=== PATIENT | female | born 1945 | race Caucasian/White ===

== ENCOUNTER → 2023-04-16 14:26 | Outpatient (BNVA) | payer OTHER, SELFPAY | PROVIDERS: PCP Internal Medicine; Visit Provider Psychiatry & Neurology Neurology | DX: G20 Parkinson's disease (principal); G25.81 Restless legs syndrome ==

== ENCOUNTER 2023-07-10 14:07 | Outpatient (AMB) | payer OTHER, SELFPAY ==
[2023-07-10 14:08] VITALS: BP 108/74; PULSE 80; O2SAT 97; BMI 25.0
--- NOTE | 2023-07-10 14:08 | A.OFFVIS_ITS ---
Intake Vital Signs 07/10/23 14:08 Height 5 ft 3 in Weight 141 lb BMI 25.0 BP 108/74 Blood Pressure Location Lt brachial Position Sitting Pulse 80 Pulse Source Pulse Oximeter Pulse Oximetry (%) 97 Oxygen Delivery Method Room Air Intake Visit Reasons: 2m [id number] Intake Note: Pt presents in office as a 2m f/u. 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 Restar ting requip XL 2mg qhs helps her restless legs but has infrequent side effects. she is on sinemet 25/100 2-1.5-2-1.5she denies hallucinations no falls she had vertigo - stopped ropinirole. she is taking Vit B 1- maximum 3 gm a day and feels it is helping her. she is able to chop vegetables, and able to use her hands better.No tremors, Bowel movements are stable. Restless legs syndrome is worse and affects her sleep. Her gait and balance are slower No constipation Memory is stable and speech is ok. SHe has mild anxiety she is independent in most ADLs. She does not drive anymore.Her partner helps with laundry.Back is usually triggered when she does yard work. Her right foot is stiffer and slower PFSH Medical History Thyroid disease Parkinson's disease Restless legs syndrome (RLS) Arthritis Family History Father Liver disease Mother Kidney disease Heart disease Family/Other Pat's disease DM (diabetes mellitus) Social History Alcohol intake: current Alcohol intake frequency: a few times a month Alcohol type: wine Patient Tobacco Use Status: Never used Tobacco Physical Exam Vital Signs: Last Vital Signs Pulse 80 07/10/23 14:08 BP 108/74 07/10/23 14:08 Pulse Ox 97 07/10/23 14:08 Oxygen Delivery Method Room Air 07/10/23 14:08 BMI result Body Mass Index 25.0 Const General: cooperative and healthy appearing Nutritional Appearance: average body habitus Orientation/consciousness: patient oriented x3 Neuro Other: no tremors Mild voice change Keeps her right hand stiff Mild stoop - keeps her right UE stiff No arm swing right UE normal stride , stooped General: patient oriented x3, tone normal, moves all extremities and no focal motor deficits Motor exam (neuro): 5/5 motor strength present throughout Assessment & Plan Assessment & Plan (1) Parkinson's disease: Code(s): G20 - Parkinson's disease (2) Restless legs syndrome (RLS): Code(s): G25.81 - Restless legs syndrome Plan Sinemet 25/100 2- 1.5-2-1.5 Increase exercises Requip XL 2mg qhs Increase fluids Coding Level of Care Code Est Pt Level 4 (10641) Diagnoses Parkinson's disease G20 Restless legs syndrome (RLS) G25.81
== END 2023-07-10 14:31 | disposition home or self-care (01) ==
PROVIDERS: PCP Internal Medicine; Visit Provider Psychiatry & Neurology Neurology
DX: G20 Parkinson's disease (principal); G25.81 Restless legs syndrome
CPT/HCPCS: 99214

== ENCOUNTER → 2023-07-10 14:07 | Outpatient (BNVA) | payer OTHER, SELFPAY | PROVIDERS: PCP Internal Medicine; Visit Provider Psychiatry & Neurology Neurology | DX: G20 Parkinson's disease (principal); G25.81 Restless legs syndrome ==

== ENCOUNTER 2024-03-10 12:18 | Outpatient (AMB) | payer OTHER, SELFPAY ==
--- NOTE | 2024-03-10 12:22 | MHC.OFFVIS ---
Vital Signs 03/10/24 12:23 Height 5 ft 3 in Weight 134 lb BMI 23.7 BP 128/78 Blood Pressure Location Rt brachial Position Sitting Respiration 17 Pulse 78 Pulse Source Pulse Oximeter Pulse Oximetry (%) 99 Oxygen Delivery Method Room Air Intake Visit Reasons: Follow up - Confirmed Intake Note: Pt presents for a 7 month follow up for Parkinson's. Pt reports she is doing well. 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 Requip XL 2mg qhs helps she is on sinemet 25/100 2-1.5-2-1.5 she denies hallucinations no falls she walks 1-2 mils every day, rides exericse bike , does balance exercises. she is able to chop vegetables, and able to use her hands better.No tremors, Bowel movements are stable. Her gait and balance are slower No constipation Memory is stable and speech is ok. SHe has mild anxiety she is independent in most ADLs. She does not drive anymore.Her partner helps with laundry.Back is usually triggered when she does yard work. [facility] Medical History (Updated 03/10/24 @ 12:44 by Mone Landry MD) Parkinson's disease with dyskinesia Thyroid disease Parkinson's disease Restless legs syndrome (RLS) Arthritis Family History Father Liver disease Mother Kidney disease Heart disease Family/Other Pat's disease DM (diabetes mellitus) Social History Alcohol intake: current Alcohol intake frequency: a few times a month Alcohol type: wine Patient Tobacco Use Status: Never used Tobacco Physical Exam Vital Signs: Last Vital Signs Pulse 78 03/10/24 12:23 Resp 17 03/10/24 12:23 BP 128/78 03/10/24 12:23 Pulse Ox 99 03/10/24 12:23 Oxygen Delivery Method Room Air 03/10/24 12:23 BMI result Body Mass Index 23.7 Assessment & Plan Assessment & Plan (1) Parkinson's disease with dyskinesia: Code(s): G20.B1 - Parkinson's disease with dyskinesia, without mention of fluctuations Category: Medical (2) Restless legs syndrome (RLS): Code(s): G25.81 - Restless legs syndrome Category: Medical Plan Sinemet 2- 1.5-2-1.5 - change times to [id number] Continue exercises Requip XL 2mg qhs Increase fluids Coding Level of Care Code Est Pt Level 4 (40570) Complex EM visit Add On G2211 Diagnoses Parkinson's disease with dyskinesia G20.B1 Restless legs syndrome (RLS) G25.81
[2024-03-10 12:23] VITALS: BP 128/78; PULSE 78; RESP 17; O2SAT 99; BMI 23.7
== END 2024-03-10 13:03 | disposition home or self-care (01) ==
PROVIDERS: PCP Internal Medicine; Visit Provider Psychiatry & Neurology Neurology
DX: G20.B1 Parkinson's disease with dyskinesia, without mention of fluctuations (principal); G25.81 Restless legs syndrome
CPT/HCPCS: 99214; G2211

== ENCOUNTER → 2024-03-10 12:18 | Outpatient (BNVA) | payer OTHER, SELFPAY | PROVIDERS: PCP Internal Medicine; Visit Provider Psychiatry & Neurology Neurology ==

== ENCOUNTER 2024-08-09 13:14 | Outpatient (AMB) | payer OTHER, SELFPAY ==
--- NOTE | 2024-08-09 13:14 | A.OFFVIS_ITS ---
Vital Signs 08/09/24 13:17 Height 5 ft 3 in Weight 135 lb BMI 23.9 Intake Visit Reasons: 6 mo f/u Register In Chancery Required: No Accompanied by: Self / Same As Patient Allergies ciprofloxacin [From Cipro] Allergy (Mild, Verified 08/09/24 13:14) Difficulty Swallowing Medication List - Last Reconciled 08/09/24 by Mone Landry MD ascorbic acid (vitamin C) ER 500 mg PO DAILY carbidopa-levodopa 25-100 mg (Sinemet) 1 1/2 tabs 5 times a day carbidopa-levodopa 25-100 mg ER 1 tab PO .am cholecalciferol (vitamin D3) 25 mcg PO DAILY coenzyme Q10 100 mg PO DAILY folic acid 0.4 mg PO DAILY gabapentin 100 mg PO BEDTIME levothyroxine (Euthyrox) 88 mcg PO DAILY magnesium 200 mg PO DAILY mecobalamin (vitamin B12) 1,000 mcg PO DAILY ropinirole ER 2 mg PO BEDTIME 90 days HPI Comments Details: 78y/o female calls for follow up. She has worsened in the past month . she has more OFF periods and her restless legs are worse. Requip XL 2mg qhs but wakes up with night sweats. she reports numbness in her feet. she is on sinemet 25/100 2-1.5-2-1.5 she denies hallucinations no falls she walks 1-2 miles every day, rides exericse bike , does balance exercises. she is able to chop vegetables, and able to use her hands better.No tremors, Bowel movements are stable. Her gait and balance are slower No constipation Memory is stable and speech is ok. she is independent in most ADLs. She does not drive anymore.Her partner helps with laundry.Back is usually triggered when she does yard work. [facility] Medical History Parkinson's disease with dyskinesia Thyroid disease Parkinson's disease Restless legs syndrome (RLS) Arthritis Family History Father Liver disease Mother Kidney disease Heart disease Family/Other Pat's disease DM (diabetes mellitus) Social History Alcohol intake: current Alcohol intake frequency: a few times a month Alcohol type: wine Patient Tobacco Use Status: Never used Tobacco Physical Exam Vital Signs: BMI result Body Mass Index 23.9 Const General: cooperative Orientation/consciousness: patient oriented x3 Neuro General: patient oriented x3 Telehealth Telehealth Telehealth Platform: Telephone Location of provider rendering services: practice address Location of patient: address on file Patient Identification confirmed using: Name, : Yes Telehealth method: voice only Patient verbally consented to treatment: Yes Patient verbally consented to billing insurance company: Yes Patient informed of any privacy concerns related to visit: Yes Minutes spent on Phone/Video with Pt.: 22 Assessment & Plan Assessment & Plan (1) Parkinson's disease with dyskinesia: Code(s): G20.B1 - Parkinson's disease with dyskinesia, without mention of fluctuations Category: Medical Qualifiers: Fluctuating manifestations: with fluctuating manifestations Qualified Code(s): G20.B2 - Parkinson's disease with dyskinesia, with fluctuations (2) Restless legs syndrome (RLS): Code(s): G25.81 - Restless legs syndrome Category: Medical Plan Sinemet 25/100 1.5 tabs 5 times a day 2- Continue exercises Requip XL 2mg qhs add gabapentin 100mg qhs Increase fluids Medications: New gabapentin 100 mg PO BEDTIME 30 caps 6RF gabapentin 100 mg PO BEDTIME 30 caps 6RF Changed From carbidopa-levodopa 25-100 mg (Sinemet) 2 tab qam 1 1/2 tab q noon 2 tab q eboni 1 1 /2 tabs qhs orally 4 times a day; 630 tabs 6RF To carbidopa-levodopa 25-100 mg (Sinemet) 1 1/2 tabs 5 times a day 630 tabs 6RF Coding Level of Care Code Tele Est Pt Level 4 (01612) Complex EM visit Add On G2211 Diagnoses Parkinson's disease with dyskinesia and fluctuating manifestations G20.B2 Fluctuating manifestations: with fluctuating manifestations Restless legs syndrome (RLS) G25.81
[2024-08-09 13:17] VITALS: BMI 23.9
== END 2024-08-09 14:16 | disposition home or self-care (01) ==
PROVIDERS: PCP Internal Medicine; Visit Provider Psychiatry & Neurology Neurology
DX: G20.B2 Parkinson's disease with dyskinesia, with fluctuations (principal); G25.81 Restless legs syndrome
CPT/HCPCS: 99214; G2211

== ENCOUNTER → 2024-08-09 13:14 | Outpatient (BNVA) | payer OTHER, SELFPAY | PROVIDERS: PCP Internal Medicine; Visit Provider Psychiatry & Neurology Neurology ==

== ENCOUNTER 2024-09-21 14:01 | Outpatient (AMB) | payer OTHER, SELFPAY ==
--- NOTE | 2024-09-21 14:03 | MHC.OFFVIS ---
Vital Signs 09/21/24 14:04 Height 5 ft 3 in Weight 142 lb BMI 25.2 Intake Visit Reasons: f/u in person per pt requested Intake Note: patient presents for follow up Allergies ciprofloxacin [From Cipro] Allergy (Mild, Verified 09/21/24 14:05) Difficulty Swallowing Medication List - Last Reconciled 09/21/24 by Mone Landry MD ascorbic acid (vitamin C) ER 500 mg PO DAILY carbidopa-levodopa 25-100 mg (Sinemet) 1 1/2 tabs 5 times a day carbidopa-levodopa 25-100 mg ER 1 tab PO .am cholecalciferol (vitamin D3) 25 mcg PO DAILY coenzyme Q10 100 mg PO DAILY folic acid 0.4 mg PO DAILY gabapentin 100 mg PO BEDTIME levothyroxine (Euthyrox) 88 mcg PO DAILY magnesium 200 mg PO DAILY mecobalamin (vitamin B12) 1,000 mcg PO DAILY ropinirole ER 2 mg PO BEDTIME 90 days HPI Comments Details: 78y/o female comes for follow up. Now she reports a different symptom - like tingling worse at night . she says this is different from her restless legs symptoms ( which she describes as someone tickling her while holding her down) She was started on gabapentin 100mg qhs 6 weeks ago. Requip XL 2mg qhs helps for 2 hrs but when she wakes up in 2-3 hrs she feels tightness in her legs and sweats she reports numbness in her feet. she is on sinemet 25/100 1.5 5 times a day she denies hallucinations no falls she walks 1-2 miles every day, rides exercise bike , does balance exercises. she is able to chop vegetables, and able to use her hands better.No tremors, Bowel movements are stable. Her gait and balance are slower No constipation Memory is stable and speech is ok. she is independent in most ADLs. She does not drive anymore.Her partner helps with laundry.Back is usually triggered when she does yard work. [facility] Medical History Parkinson's disease with dyskinesia Thyroid disease Parkinson's disease Restless legs syndrome (RLS) Arthritis Family History Father Liver disease Mother Kidney disease Heart disease Family/Other Pat's disease DM (diabetes mellitus) Social History Alcohol intake: current Alcohol intake frequency: a few times a month Alcohol type: wine Patient Tobacco Use Status: Never used Tobacco Physical Exam Vital Signs: BMI result Body Mass Index 25.2 Const General: cooperative and healthy appearing Nutritional Appearance: average body habitus Orientation/consciousness: patient oriented x3 Neuro Other: no tremors Mild voice change dyskinesia - mild to moderate Keeps her right hand stiff Mild stoop - keeps her right UE stiff No arm swing right UE normal stride , stooped General: patient oriented x3, tone normal, moves all extremities and no focal motor deficits Motor exam (neuro): 5/5 motor strength present throughout Coordination: [id number] test normal Assessment & Plan Assessment & Plan (1) Parkinson's disease with dyskinesia: Code(s): G20.B1 - Parkinson's disease with dyskinesia, without mention of fluctuations Category: Medical Qualifiers: Fluctuating manifestations: with fluctuating manifestations Qualified Code(s): G20.B2 - Parkinson's disease with dyskinesia, with fluctuations (2) Restless legs syndrome (RLS): Code(s): G25.81 - Restless legs syndrome Category: Medical Plan D/c Sinemet 25/100 1.5 tabs 5 times a day I will trial her on Rytary 36/145 2 caps tid stop requip XR 2mg qhs Trial requip 1mg qhs - Continue exercises Increase gabapentin 100- 200mg qhs Increase fluids Medications: New carbidopa-levodopa 36.25-145 mg ER (Rytary) divide evenly over waking hours 2 caps PO TID 180 caps 0RF ropinirole administer 1-3 hours before bedtime 1 mg PO BEDTIME 30 tabs 0RF Changed From gabapentin 100 mg PO BEDTIME 30 caps 6RF To gabapentin 200 mg (2 x 100 mg) PO BEDTIME 60 caps 6RF Discontinued ropinirole ER Discontinued Reason: Doctor's Order 2 mg PO BEDTIME 90 days 90 tabs 6RF Coding Level of Care Code Est Pt Level 4 (60984) Complex EM visit Add On G2211 Diagnoses Parkinson's disease with dyskinesia and fluctuating manifestations G20.B2 Fluctuating manifestations: with fluctuating manifestations Restless legs syndrome (RLS) G25.81
[2024-09-21 14:04] VITALS: BMI 25.2
== END 2024-09-21 14:33 | disposition home or self-care (01) ==
PROVIDERS: PCP Internal Medicine; Visit Provider Psychiatry & Neurology Neurology
DX: G20.B2 Parkinson's disease with dyskinesia, with fluctuations (principal); G25.81 Restless legs syndrome
CPT/HCPCS: 99214; G2211

== ENCOUNTER 2024-10-19 13:22 | Outpatient (AMB) | payer OTHER, SELFPAY ==
--- NOTE | 2024-10-19 13:20 | A.OFFVIS_ITS ---
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 Accompanied by: Self / Same As Patient Allergies ciprofloxacin [From Cipro] Allergy (Mild, Verified 10/19/24 13:20) Difficulty Swallowing Medication List - Last Reconciled 10/19/24 by Mone Landry MD ascorbic acid (vitamin C) ER 500 mg PO DAILY carbidopa-levodopa 25-100 mg 2 tabs PO QID cholecalciferol (vitamin D3) 25 mcg PO DAILY coenzyme Q10 100 mg PO DAILY entacapone 200 mg PO QID folic acid 0.4 mg PO DAILY gabapentin 300 mg (3 x 100 mg) PO BEDTIME levothyroxine (Euthyrox) 88 mcg PO DAILY magnesium 200 mg PO DAILY mecobalamin (vitamin B12) 1,000 mcg PO DAILY ropinirole 1 mg PO BEDTIME HPI Comments Details: 78y/o female calls for follow up. she did not do well with Rytary , she was switched to sinemet 25/100 with entacapone 200mg 1 tab qid and sinemet 25/100 qid 2 days ago and she is doing well. The first day she felt nauseous and icnrease in her restless leg symptoms but she did better yesterday. she walks 1-2 miles every day, rides exercise bike , does balance exercises. she is able to chop vegetables, and able to use her hands better.No tremors, Bowel movements are stable. Her gait and balance are slower No constipation Memory is stable and speech is ok. she is independent in most ADLs. She does not drive anymore.Her partner helps with laundry.Back is usually triggered when she does yard work. [facility] Medical History Parkinson's disease with dyskinesia Thyroid disease Parkinson's disease Restless legs syndrome (RLS) Arthritis Family History Father Liver disease Mother Kidney disease Heart disease Family/Other Pat's disease DM (diabetes mellitus) Social History Alcohol intake: current Alcohol intake frequency: a few times a month Alcohol type: wine Patient Tobacco Use Status: Never used Tobacco Physical Exam Vital Signs: BMI result Body Mass Index 24.8 Const General: cooperative Orientation/consciousness: patient oriented x3 Neuro General: patient oriented x3 Telehealth Telehealth Telehealth Platform: Telephone Location of provider rendering services: practice address Location of patient: address on file Patient Identification confirmed using: Name, : Yes Telehealth method: voice only Patient verbally consented to treatment: Yes Patient verbally consented to billing insurance company: Yes Patient informed of any privacy concerns related to visit: Yes Minutes spent on Phone/Video with Pt.: 22 Assessment & Plan Assessment & Plan (1) Parkinson's disease with dyskinesia: Code(s): G20.B1 - Parkinson's disease with dyskinesia, without mention of fluctuations Category: Medical Qualifiers: Fluctuating manifestations: with fluctuating manifestations Qualified Code(s): G20.B2 - Parkinson's disease with dyskinesia, with fluctuations (2) Restless legs syndrome (RLS): Code(s): G25.81 - Restless legs syndrome Category: Medical Plan continue Sinemet 25/100 2 tabs qid entacapone 200mg qid requip 1mg qhs - Continue exercises Increase gabapentin 100- 300mg qhs Increase fluids Medications: New carbidopa-levodopa 25-100 mg 2 tabs PO QID 240 tabs 6RF entacapone administer at the same time as levodopa/carbidopa dose 200 mg PO QID 120 tabs 6RF Changed From gabapentin 200 mg (2 x 100 mg) PO BEDTIME 60 caps 6RF To gabapentin 300 mg (3 x 100 mg) PO BEDTIME 90 caps 6RF Discontinued [id number] 25-100-200 mg Discontinued Reason: Doctor's Order 1 tab PO QID 120 tabs 3RF carbidopa-levodopa 36.25-145 mg ER (Rytary) divide evenly over waking hours Discontinued Reason: Patient no longer taking 2 caps PO TID 180 caps 0RF Coding Level of Care Code Tele Est Pt Level 4 (30165) Complex EM visit Add On G2211 Diagnoses Parkinson's disease with dyskinesia and fluctuating manifestations G20.B2 Fluctuating manifestations: with fluctuating manifestations Restless legs syndrome (RLS) G25.81
[2024-10-19 13:21] VITALS: BMI 24.8
== END 2024-10-19 14:14 | disposition home or self-care (01) ==
PROVIDERS: PCP Internal Medicine; Visit Provider Psychiatry & Neurology Neurology
DX: G20.B2 Parkinson's disease with dyskinesia, with fluctuations (principal); G25.81 Restless legs syndrome
CPT/HCPCS: 99442; G2211

== ENCOUNTER → 2024-10-19 13:22 | Outpatient (BNVA) | payer OTHER, SELFPAY | PROVIDERS: PCP Internal Medicine; Visit Provider Psychiatry & Neurology Neurology | DX: G20.B2 Parkinson's disease with dyskinesia, with fluctuations (principal); G25.81 Restless legs syndrome ==

== ENCOUNTER 2024-12-08 11:24 | Outpatient (AMB) | payer OTHER, SELFPAY ==
--- NOTE | 2024-12-08 11:24 | A.OFFVIS_ITS ---
Intake Visit Reasons: Follow Up Allergies ciprofloxacin [From Cipro] Allergy (Mild, Verified 12/08/24 11:24) Difficulty Swallowing Medication List - Last Reconciled 12/08/24 by Mone Landry MD ascorbic acid (vitamin C) ER 500 mg PO DAILY carbidopa-levodopa 25-100 mg 2 tabs PO QID carbidopa-levodopa 25-100 mg ER 1 tab PO BEDTIME cholecalciferol (vitamin D3) 25 mcg PO DAILY coenzyme Q10 100 mg PO DAILY entacapone 200 mg PO QID folic acid 0.4 mg PO DAILY gabapentin 300 mg (3 x 100 mg) PO BEDTIME levothyroxine (Euthyrox) 88 mcg PO DAILY magnesium 200 mg PO DAILY mecobalamin (vitamin B12) 1,000 mcg PO DAILY ropinirole 1 mg PO BEDTIME HPI Comments Details: 79y/o female calls for urgent follow up. she reports early wearing OFF - 1 hr before her next dose she feels weak , dizzy , feels her foot is stuck. she also has dyskinesias . she also reports increase in nighttime symptoms. she is able to chop vegetables, and able to use her hands better.No tremors, Bowel movements are stable. Her gait and balance are slower No constipation Memory is stable and speech is ok. she is independent in most ADLs. She does not drive anymore.Her partner helps with laundry.Back is usually triggered when she does yard work. [facility] Medical History Parkinson's disease with dyskinesia Thyroid disease Parkinson's disease Restless legs syndrome (RLS) Arthritis Family History Father Liver disease Mother Kidney disease Heart disease Family/Other Pat's disease DM (diabetes mellitus) Social History Alcohol intake: current Alcohol intake frequency: a few times a month Alcohol type: wine Patient Tobacco Use Status: Never used Tobacco Physical Exam Const General: cooperative Orientation/consciousness: oriented to time Neuro General: oriented to time Telehealth Telehealth Telehealth Platform: Telephone Location of provider rendering services: practice address Location of patient: address on file Patient Identification confirmed using: Name, : Yes Telehealth method: voice only Patient verbally consented to treatment: Yes Patient verbally consented to billing insurance company: Yes Patient informed of any privacy concerns related to visit: Yes Minutes spent on Phone/Video with Pt.: 21 Assessment & Plan Assessment & Plan (1) Parkinson's disease with dyskinesia: Code(s): G20.B1 - Parkinson's disease with dyskinesia, without mention of fluctuations Category: Medical Qualifiers: Fluctuating manifestations: with fluctuating manifestations Qualified Code(s): G20.B2 - Parkinson's disease with dyskinesia, with fluctuations (2) Restless legs syndrome (RLS): Code(s): G25.81 - Restless legs syndrome Category: Medical Plan continue Sinemet 25/100 2 tabs qid- change timings to 6am-10am,2pm,6pm entacapone 200mg qid ADD sinemet 25/100 ER 1 tab at 9 PM Requip 1mg qhs - Continue exercises Continue gabapentin 100- 300mg qhs Increase fluids Orders: Orders PT Evaluation and Treatment Today G20.B2 - Parkinson's disease with dyskinesia, with fluctuations Medications: New carbidopa-levodopa 25-100 mg ER 1 tab PO BEDTIME 30 tabs 3RF Refilled ropinirole administer 1-3 hours before bedtime 1 mg PO BEDTIME 30 tabs 0RF Coding Level of Care Code Tele Est Pt Level 4 (15757) Complex EM visit Add On G2211 Diagnoses Parkinson's disease with dyskinesia and fluctuating manifestations G20.B2 Fluctuating manifestations: with fluctuating manifestations Restless legs syndrome (RLS) G25.81
--- OUTSIDE RECORDS SUMMARY | 2024-12-08 13:10 | XMS_ITS | Encounter Summary ---
Author Organization [facility] Address [address] [place] [address] Care Team Providers Care Dual Hose Cementer Name Role Phone Bobby Diaz Primary Care Provider [phone] Reason for Visit * Reason Comments Knee Injury Right knee swelling and pain since Friday, unable to ambulate Encounter Details Date Type Department Care Team (Late st Contact Info) Description 11/28/2024 12:27 PM EST - 11/28/2024 5:22 PM EST Emergency [facility] Emergency [address] [place] [id number] Razia Pak, DO [address] [place] [address] Yaniv Oglesby MD [address] [place] [address] Pain of right lower extremity (Primary Dx); Knee effusion, right Discharge Disposition: Home or Self Care Social History Tobacco Use Types Packs/Day Years Used Date Smoking Tobacco: Never Assessed Sex and Gender Information Value Date Recorded Sex Assigned at Not on file Gender Identity Not on file Sexual Orientation Not on file Job Start Date Occupation Industry Not on file Not on file Not on file documented as of this encounter Last Filed Vital Signs Vital Sign Reading Time Taken Comments Blood Pressure 126/68 11/28/2024 3:28 PM EST Pulse 71 11/28/2024 3:28 PM EST Temperature 36.4 ??C (97.5 ??F) 11/28/2024 3:28 PM ES T Respiratory Rate 16 11/28/2024 3:28 PM EST Oxygen Saturation 99% 11/28/2024 3:28 PM EST Inhaled Oxygen Concentration - - Weight 63.5 kg (140 lb) 11/28/2024 9:40 AM EST Height 157.5 cm (5' 2 ) 11/28/2024 9:40 AM EST Body Mass Index 25.61 11/28/2024 9:40 AM EST documented in this encounter Discharge Instructions * Discharge Instructions* STEPHANIE Sifuentes - 11/28/2024 5:10 PM EST Please take the medication as prescribed, elevate the leg, cool compresses. Avoid excessive activity especially over the next few days. Call primary care to follow-up. You can also call orthopedic asin the paperwork to follow-up if persists/worsens. If you develop any fevers, redness/significant warmth or skin changes to the knee return to the ER for reevaluation documented in this encounter Medications at Time of Discharge Medication Sig Dispensed Refills Start Date End Date ibuprofen (ADVIL,MOTRIN) 600 mg tablet Take 1 tablet (600 mg total) by mouth every 6 (six) hours if needed for mild pain (for pain) for up to 10 days. 30 tablet 11/28/2024 12/08/2024 predniSONE (DELTASONE) 20 mg tablet Take 1 tablet (20 mg total) by mouth 1 (one) time each day for 10 days. 10 each 11/28/2024 12/08/2024 documented as of this encounter Ordered Prescriptions Prescription Sig Dispensed Refills Start Date End Da te ibuprofen (ADVIL,MOTRIN) 600 mg tablet Take 1 tablet (600 mg total) by mouth every 6 (six) hours if needed for mild pain (for pain) for up to 10 days. 30 tablet 11/28/2024 12/08/2024 predniSONE (DELTASONE) 20 mg tablet Take 1 tablet (20 mg total) by mouth 1 (one) time each day for 10 days. 10 each 11/28/2024 12/08/2024 documented in this encounter Discharge Disposition Disposition Code Departure Means Destination Comment s Home or Self Care documented in this encounter Progress Notes * Kerri Blue RN - 11/28/2024 9:44 AM EST Since Friday noticed right knee swelling, unable to ambulate; saw PCP he did nothing Noticeable swelling in triage. * STEPHANIE Sifuentes - 11/28/2024 9:24 AM ESTAssociated Order(s): Arthrocentesis Emergency Medicine Note Patient Name: Anatoliy Sharpe Initial Evaluation: 11/28/2024 : 1945 Patient's PCP: STEPHANEI Thompson Emergency Physician: STEPHANIE Sifuentes History of Present Illness Chief Complaint: Chief Complaint Patient presents with Knee Injury Right knee swelling and pain since Friday, unable to ambulate HPI: 79-year-old female with history of Parkinson's disease presents with right leg pain. She says it has been about 3 to 4 days. It first started as a mild soreness but seems to be bothering her more now. At times she will feel little soreness into the right calf but it is mostly on the right kneeand a little behind the right knee. She says she has varicosities and thought maybe it was that it first. -She denies history of other arthralgias or arthritis. -Denies chest pain, shortness of breath, trauma ROS: I have performed a ROS with the pertinent positives and negatives documented in the history ofpresent illness. Previous History No past medical history on file. No past surgical history on file. No family history on file. is allergic to ciprofloxacin. No current facility-administered medications on file prior to encounter. No current outpatient medications on file prior to encounter. Physical Exam ED Triage Vitals [11/28/24 0940] Temp Heart Rate Resp BP 36.5 ??C (97.7 ??F) 79 16 95/53 SpO2 Temp Source Heart Rate Source Patient Position 99 % Oral Radial -- BP Location FiO2 (%) Left arm -- General: awake, calm, cooperative, No apparent distress Skin: warm, dry, No diaphoresis. No rash or significant discoloration to the right leg when compared to left Eyes: PERRLA, EOMI Neck: soft/supple, full range of motion, no nuchal rigidity Respiratory: clear to auscultation Cardiovascular: regular rate and rhythm, no peripheral edema. 2+ pedal pulses equal and symmetricalbilateral. Close veins to bilateral lower extremities Musculoskeletal: no calf tenderness, no pedal edema, appropriate range of motion in upper and lowerextremities. Swelling about the right knee when compared to left. Neurological: alert and oriented X3, no focal deficit, DTR intact, cranial nerves III through XII intact, strength 5/5 bilateral hands, 5/5 strength upper and lower extremities Psychiatric: stable mood and affect Results Labs Reviewed CRYSTAL IDENTIFICATION, BODY FLUID - Normal Result Value Crystals, Fluid No diagnostic crystals seen CULTURE BODY FLUID WITH GRAM STAIN Fluid Culture No growth at 2 days Gram Stain Result Few Polymorphonuclear leukocytes Gram Stain Result No epithelial cells seen Gram Stain Result No organisms seen Narrative: Testing performed on Unspun fluid, Quantity not sufficient to spin. CELL COUNT WITH REFLEX DIFFERENTIAL, BODY FLUID Body Fluid Total Nucleated Cells 1,880 Body Fluid RBC 256,000 Body Fluid Color Red Body Fluid Clarity Bloody Body Fluid Source Knee, Right Narrative: No reference ranges have been established for body fluids. Clinical correlation recommended. DIFFERENTIAL BODY FLUID Fluid Neutrophils % 33 Fluid Lymphocytes % 7 Fluid Monocytes/Macrophages 60 Fluid Eosinophils % 0 Fluid Basophils % 0 Fluid Other Cells % 0 Narrative: No reference ranges have been established for body fluids. Clinical correlation recommended. Abnormal Labs Reviewed - No abnormal labs to display XR Knee 4+ Views Right Final Result Impression: 1. Soft tissue swelling. 2. Small joint effusion. 3. Minimal, nonspecific arthritic changes. Independent Spaceeamon BROWN ([id number]) -------- FINAL REPORT -------- Dictated By: Anay Hurtado Dictated Date: 11/28/2024 13:24 ET Assigned Physician: Anay Hurtado Reviewed and Electronically Signed By: Anay Hurtado Signed Date: 11/28/2024 13:25 ET Workstation ID: [id number] Transcribed By: Self Edit Transcribed Date: 11/28/2024 13:24 ET Vascular US Duplex Lower Extremity Venous Right Final Result Impression: No evidence of deep vein thrombosis in the right femoral-popliteal venous segment. Knee joint effusion. Independent Spaceeamon BROWN ([id number]) -------- FINAL REPORT -------- Dictated By: Anay Hurtado Dictated Date: 11/28/2024 13:23 ET Assigned Physician: Anay Hurtado Reviewed and Electronically Signed By: Anay Hurtado Signed Date: 11/28/2024 13:24 ET Workstation ID: [id number] Transcribed By: Self Edit Transcribed Date: 11/28/2024 13:23 ET I have discussed the incidental/abnormal imaging and/or lab abnormalities with the patient and haveinstructed them the need for further evaluation and workup with their primary care doctor. The laboratory results, imaging results and other diagnostic exam results were reviewed in the EMR. EKG Interpretation Critical Care Time None ? Medical Decision Making MDM as described in ED course below Medications lidocaine (XYLOCAINE) 2 % injection 5 mL (5 mL infiltration Given 11/28/24 1434) ED Course as of 11/30/245 Sun Nov 28, 2024 1244 Seen and evaluated. History and physical exam performed. Vitals reviewed. Patient is afebrile,well-appearing and nontoxic. She has no specific history of inflammatory arthritis. As she does have some pain and swelling down into the calf we will proceed with ultrasound to rule out DVT as well as x-ray for initial evaluation. Will review with my attending. [AT] 1657 Test results with patient and family at bedside. Analysis does not look infectious. Will coverwith steroids, anti-inflammatories. No history of kidney disease/anticoagulants. Will provide referral information in case persist. Return Precautions discussed. [AT] ED Course User Index [AT] STEPHANIE Sifuentes Clinical Impressions as of 11/30/242214 Pain of right lower extremity Knee effusion, right Procedures Arthrocentesis Date/Time: 11/28/2024 3:13 PM Performed by: STEPHANIE Sifuentes Authorized by: Razia Pak DO Consent: Consent obtained: Written Consent given by: Patient Risks, benefits, and alternatives were discussed: yes Risks discussed: Bleeding, infection, pain, poor cosmetic result, nerve damage and incomplete drainage Alternatives discussed: Alternative treatment, observation and referral Ogema protocol: Patient identity confirmed: Verbally with patient and arm band Location: Location: Knee Knee: R knee Anesthesia: Anesthesia method: Local infiltration Local anesthetic: Lidocaine 2% w/o epi Procedure details: Needle gauge: 22 G Ultrasound guidance: yes Approach: Superior Aspirate amount: 5cc Aspirate characteristics: Blood-tinged and clear Steroid injected: no Specimen collected: yes Post-procedure details: Dressing: Adhesive bandage Procedure completion: Tolerated well, no immediate complications Differential Diagnosis DVT Inflammatory arthritis Osteoarthritis Septic arthritis Other joint effusion Diagnosis 1. Pain of right lower extremity Vascular US Duplex Lower Extremity Venous Right Vascular US Duplex Lower Extremity Venous Right 2. Knee effusion, right Disposition Discharge Condition: Stable ED Prescriptions Medication Sig Dispense Start Date End Date Auth. Provider predniSONE (DELTASONE) 20 mg tablet Take 1 tablet (20 mg total) by mouth 1 (one) time each day for 10 days. 10 each 11/28/2024 12/08/2024 STEPHANIE Sifuentes ibuprofen (ADVIL,MOTRIN) 600 mg tablet Take 1 tablet (600 mg total) by mouth every 6 (six) hours ifneeded for mild pain (for pain) for up to 10 days. 30 tablet 11/28/2024 12/08/2024 STEPHANIE Sifuentes Physician Attestation STEPHANIE Sifuentes 11/28/24 1249 STEPHANIE Sifuentes 11/28/24 1514 STEPHANIE Sifuentes 11/30/24 2215 documented in this encounter Plan of Treatment Not on file documented as of this encounter Procedures Procedure Name Priority Date/Time Associated Diagnosis Comments HC ARTHROCENTESIS/FNA Routine 11/28/2024 3:13 PM EST NV ARTHROCENTESIS/ASPIRA TION/INJECTION MAJOR JOINT/BURSA W U/S GUIDANCE Routine 11/28/2024 3:13 PM EST CELL COUNT WITH REFLEX DIFFERENTIAL, BODY FLUID STAT 11/28/2024 3:10 PM EST CULTURE BODY FLUID WITH GRAM STAIN STAT 11/28/2024 3:10 PM EST DIFFERENTIAL BODY FLUID STAT 11/28/2024 3:10 PM EST CRYSTAL IDENTIFICATION, BODY FLUID STAT 11/28/2024 3:10 PM EST XR KNEE 4+ VIEWS RIGHT STAT 11/28/2024 1:21 PM EST VAS US DUPLEX LOWER EXT VENOUS RIGHT STAT 11/28/2024 1:19 PM EST Pain of right lower extremity documented in this encounter Results * NV ARTHROCENTESIS/ASPIRATION/INJECTION MAJOR JOINT/BURSA W U/S GUIDANCE, HC ARTHROCENTESIS/FNA (11/28/2024 3:13 PM EST) Narrative Razia Pak DO - 11/28/2024 3:13 PM EST STEPHANIE Sifuentes ? 11/30/2024 10:15 PM Arthrocentesis Date/Time: 11/28/2024 3:13 PM Performed by: STEPHANIE Sifuentes Authorized by: Razia Pak DO ?? Consent: ??Consent obtained: ??Written ??Consent given by: ??Patient ??Risks, benefits, and alternatives were discussed: yes ?Risks discussed: ??Bleeding, infection, pain, poor cosmetic result, nerve damage and incomplete drainage ??Alternatives discussed: ??Alternative treatment, observation and referral Ogema protocol: ??Patient identity confirmed: ??Verbally with patient and arm band Location: ??Location: ??Knee ??Knee: ??R knee Anesthesia: ??Anesthesia method: ??Local infiltration ??Local anesthetic: ??Lidocaine 2% w/o epi Procedure details: ??Needle gauge: ??22 G ??Ultrasound guidance: yes ?Approach: ??Superior ??Aspirate amount: ??5cc ??Aspirate characteristics: ??Blood-tinged and clear ??Steroid injected: no ?Specimen collected: yes ?? Post-procedure details: ??Dressing: ??Adhesive bandage ??Procedure completion: ??Tolerated well, no immediate complications Razia Pak DO IN CLINIC/BEDSIDE ORDERABLES * Differential body fluid (11/28/2024 3:10 PM EST) Fluid Neutrophils % 33 % 11/28/2024 4:[address] [facility] Fluid Lymphocytes % 7 % 11/28/2024 4:44 PM [facility] Fluid Monocytes/Macrop hages 60 % 11/28/2024 4:44 PM [facility] Fluid Eosinophils % 0 % 11/28/2024 4:44 PM [facility] Fluid Basophils % 0 % 11/28/2024 4:44 PM [facility] Fluid Other Cells % 0 % 11/28/2024 4:44 PM [facility] Aspirate Structure of right knee region / Unknown 11/28/2024 3:10 PM EST 11/28/2024 3:15 PM EST [facility] - 11/28/2024 4:44 PM EST No reference ranges have been established for body fluids. Clinical correlation recommended. Elena BROWN LAB BODY FLUIDS AND STOOLS ORDERABLES [facility] [address] [place] [address], * Cell count with reflex differential, body fluid (11/28/2024 3:10 PM EST) Body Fluid Total Nucleated Cells 1,880 /mm3 LAB HEMETOLOGY METHOD 11/28/2024 4:44 PM [facility] Body Fluid RBC 256,000 /mm3 LAB HEMETOLOGY METHOD 11/28/2024 4:44 PM [facility] Body Fluid Color Red 11/28/2024 4:44 PM [facility] Body Fluid Clarity Bloody 11/28/2024 4:44 PM [facility] Body Fluid Source Knee, Right 11/28/2024 4:44 PM [facility] Aspirate Structure of right knee region / Unknown 11/28/2024 3:10 PM EST 11/28/2024 3:15 PM EST [facility] - 11/28/2024 4:44 PM EST No reference ranges have been established for body fluids. Clinical correlation recommended. Elena BROWN LAB BODY FLUIDS AND STOOLS ORDERABLES Performing Organization Address City/[facility]/ZIP Co de Phone Number [facility] [address] [place] [address], [place] [phone] * Culture body fluid with gram stain (11/28/2024 3:10 PM EST) Fluid Culture No growth at 3 days LAB MICROBIOLOGY METHOD 12/01/2024 11:[address] [facility] Gram Stain Result Few Polymorphonuclear leukocytes 12/01/2024 11:[address] [facility] Gram Stain Result No epithelial cells seen 12/01/2024 11:[address] [facility] Gram Stain Result No organisms seen 12/01/2024 11:26 AM [facility] Aspirate Structure of right knee region / Unknown 11/28/2024 3:10 PM EST 11/28/2024 3:15 PM EST [facility] - 12/01/2024 11:26 AM EST Testing performed on Unspun fluid, Quantity not sufficient to spin. Elena BROWN LAB MICROBIOLOGY - GENERAL ORDERABLES Performing Organization Address City/[facility]/ZIP Co de Phone Number [facility] [address] [place] [address], [place] [phone] * Body fluid crystal (11/28/2024 3:10 PM EST) Crystals, Fluid No diagnostic crystals seen No diagnostic crystals seen 11/28/2024 4:[address] [facility] Synovial Fluid Structure of right knee region / Unknown 11/28/2024 3:10 PM EST 11/28/2024 3:14 PM EST Elena BROWN LAB BODY FLUIDS AND STOOLS ORDERABLES [facility] [address] [place] [address], * XR Knee 4+ Views Right (11/28/2024 1:21 PM EST) Anatomical Region Laterality Modality Lower Extremities, Knee Right Radiogra phic Imaging 11/28/2024 1:24 PM EST Impressions 11/28/2024 1:25 PM EST Impression: 1. Soft tissue swelling. 2. Small joint effusion. 3. Minimal, nonspecific arthritic changes. Kenrick BROWN ([id number]) -------- FINAL REPORT -------- Dictated By: Anay Hurtado Dictated Date: 11/28/2024 13:24 ET Assigned Physician: Anay Hurtado Reviewed and Electronically Signed By: Anay Hurtado Signed Date: 11/28/2024 13:25 ET Workstation ID: [id number] Transcribed By: Self Edit Transcribed Date: 11/28/2024 13:24 ET Narrative 11/28/2024 1:25 PM EST History: Right knee pain and swelling. Comparison: No comparison imaging at this institution. Findings: AP, oblique and crossfire lateral views of the right knee. There is diffuse soft tissue swelling. A small joint effusion is seen. The osseous structures are intact and the articular spaces are well-maintained. Mild bony hypertrophy of the tibial spines is noted and there are tiny marginal osteophytes throughout the knee. Procedure Note Anay Hurtado MD - 11/28/2024 History: Right knee pain and swelling. Comparison: No comparison imaging at this institution. Findings: AP, oblique and crossfire lateral views of the right knee. There is diffuse soft tissue swelling. A small joint effusion is seen. The osseous structures are intact and the articular spaces arewell-maintained. Mild bony hypertrophy of the tibial spines is noted andthere are tiny marginal osteophytes throughout the knee. IMPRESSION: Impression: 1. Soft tissue swelling. 2. Small joint effusion. 3. Minimal, nonspecific arthritic changes. Telerad PA ([id number]) -------- FINAL REPORT -------- Dictated By: Anay Hurtado Dictated Date: 11/28/2024 13:24 ET Assigned Physician: Anay Hurtado Reviewed and Electronically Signed By: Anay Hurtado Signed Date: 11/28/2024 13:25 ET Workstation ID: [id number] Transcribed By: Self Edit Transcribed Date: 11/28/2024 13:24 ET Razia Pak DO IMG XR PROCEDURES * Vascular US Duplex Lower Extremity Venous Right (11/28/2024 1:19 PM EST) Anatomical Region Laterality Modality Vascular, Abdomen Ultrasound 11/28/2024 1:23 PM EST Impressions 11/28/2024 1:24 PM EST Impression: No evidence of deep vein thrombosis in the right femoral-popliteal venous segment. Knee joint effusion. Telerad PA ([id number]) -------- FINAL REPORT -------- Dictated By: Anay Hurtado Dictated Date: 11/28/2024 13:23 ET Assigned Physician: Anay Hurtado Reviewed and Electronically Signed By: Anay Hurtado Signed Date: 11/28/2024 13:24 ET Workstation ID: [id number] Transcribed By: Self Edit Transcribed Date: 11/28/2024 13:23 ET Narrative 11/28/2024 1:24 PM EST History: Right lower extremity pain. Findings: Duplex and color Doppler imaging of the deep venous system of the right lower extremity was performed from the inguinal ligament to the popliteal fossa. The common femoral, femoral and popliteal veins are patent and compress completely. Normal spontaneous and phasic venous flow is demonstrated with Doppler. Normal flow augmentation with calf compression is demonstrated. The deep calf veins, as visualized, are compressible. A knee joint effusion is noted. Procedure Note Anay Hurtado MD - 11/28/2024 History: Right lower extremity pain. Findings: Duplex and color Doppler imaging of the deep venous system of the rightlower extremity was performed from the inguinal ligament to the poplitealfossa. The common femoral, femoral and popliteal veins are patent andcompress completely. Normal spontaneous and phasic venous flow isdemonstrated with Doppler. Normal flow augmentation with calf compressionis demonstrated. The deep calf veins, as visualized, are compressible. A knee joint effusion is noted. IMPRESSION: Impression: No evidence of deep vein thrombosis in the right femoral-popliteal venoussegment. Knee joint effusion. Dimdim STEPHANIE ([id number]) -------- FINAL REPORT -------- Dictated By: Anay Hurtado Dictated Date: 11/28/2024 13:23 ET Assigned Physician: Anay Hurtado Reviewed and Electronically Signed By: Aany Hurtado Signed Date: 11/28/2024 13:24 ET Workstation ID: [id number] Transcribed By: Self Edit Transcribed Date: 11/28/2024 13:23 ET Elena BROWN CV VASCULAR PROC EDURES documented in this encounter Visit Diagnoses Diagnosis Pain of right lower extremity- Primary Knee effusion, right Effusion of lower leg joint documented in this encounter Administered Medications Inactive Administered Medications - up to 3 most recent administrations Medication Order MAR Action Action Date Dose Rate Site lidocaine (XYLOCAINE) 2 % injection 5 mL 5 mL, infiltration, Once, On 11/28/24 at 1433, For 1 dose Given 11/28/2024 2:34 PM EST 5 mL documented in this encounter Active and Recently Administered Medications Times are shown in EST. Scheduled Medication Order 11/26/2024 11/27/2024 11/28/2024 lidocaine (XYLOCAINE) 2 % injection 5 mL (COMPLETED) 5 mL, infiltration, Once, On 11/28/24 at 1433, For 1 dose 1434 (Given - Provid er: Alicia Carroll RN) documented in this encounter Orders Medications Ordered That Dg ht Not Have Been Administered Count Last Ordered Date First Ordered Date lidocaine (XYLOCAINE) 2 % injection 5 mL 1 11/28/2024 documented in this encounter Care Teams Dual Hose Cementer Relationship Specialty Start Date End Date Bobby Diaz PA [address] [place] [id number] PCP - General Internal Medicine 11/28/24 documented as of this encounter
--- OUTSIDE RECORDS SUMMARY | 2024-12-08 13:11 | XMS_ITS | Clinical Summary ---
Author Organization [facility] Address [address] [place] [address] Phone Care Team Providers Care Piece Goods Clerk Name Role Phone Bobby Diaz Primary Care Provider [phone] Allergies Active Allergy Reactions Criticality Noted Date Comments Ciprofloxacin Swelling 11/28/2024 Eye drops Medications Medication Sig Dispensed Refills Start Date End Date Status predniSONE (DELTASONE) 20 mg tablet Take 1 tablet (20 mg total) by mouth 1 (one) time each day for 10 days. 10 each 11/28/2024 12/08/2024 Active ibuprofen (ADVIL,MOTRIN) 600 mg tablet Take 1 tablet (600 mg total) by mouth every 6 (six) hours if needed for mild pain (for pain) for up to 10 days. 30 tablet 11/28/2024 12/08/2024 Active Encounters Date Type Department Care Team Description 11/28/2024 12:27 PM EST - 11/28/2024 5:22 PM EST Emergency [facility] Emergency [address] [place] [address] Razia Pak DO Patel, Parth B, MD Pain of right lower extremity (Primary Dx); Knee effusion, right Discharge Disposition: Home or Self Care from Last 3 Months Social History Tobacco Use Types Packs/Day Years Used Date Smoking Tobacco: Never Assessed Sex and Gender Information Value Date Recorded Sex Assigned at Not on file Gender Identity Not on file Sexual Orientation Not on file Job Start Date Occupation Industry Not on file Not on file Not on file Last Filed Vital Signs Vital Sign Reading [...] Mass Index 25.61 11/28/2024 9:40 AM EST Plan of Treatment Health Maintenance Due Date Last Done Comments DTaP,Tdap,and Td Vaccines (1 - Tdap) 1966 Zoster Vaccines (1 of 2) 1997 Pneumococcal Vaccine: 65+ Years (1 of 1 - PCV) 2012 RSV Immunization Patients 60 + Years Old (1 - 1-dose 75+ series) 2022 COVID-19 Vaccine (1 - 2023-2 5 season) 2024 Influenza Vaccine (#1) 2024 2, 09/14/2021 Depression Screening 08/27/2024 Falls Risk Assessment 08/27/2024 Hepatitis C Screening 08/27/2024 Medicare Annual Wellness Visit 08/27/2024 Social Influencers of Health Screening 08/27/2024 Osteoporosis Screening (Bone Density Screening) 02/05/2031 02/05/2021 Breast Cancer Screening Discontinued 02/05/2021 HIB Vaccines Aged Out No longer eligi ble based on patient's age to complete this topic HPV Vaccines Aged Out No longer eligi ble based on patient's age to complete this topic Hepatitis A Vaccines Aged Out No long er eligible based on patient's age to complete this topic Hepatitis B Vaccines Aged Out No long er eligible based on patient's age to complete this topic IPV Vaccines Aged Out No longer eligi ble based on patient's age to complete this topic MMR Vaccines Aged Out No longer eligi ble based on patient's age to complete this topic Meningococcal ACWY Vaccine Aged Out N o longer eligible based on patient's age to complete this topic RSV Immunization Patients Under 20 months Aged Out No longer eligible based on patient's age to complete this topic Varicella Vaccines Aged Out No longer eligible based on patient's age to complete this topic Procedures Procedure Name Priority Date/Time Associated Diagnosis Comments ARTHROCENTESIS/FNA Routine 11/28/2024 3:13 PM EST VA ARTHROCENTESIS/ASPIRA TION/INJECTION MAJOR JOINT/BURSA W U/S GUIDANCE Routine 11/28/2024 3:13 PM EST DIFFERENTIAL BODY FLUID STAT 11/28/2024 3:10 PM EST CELL COUNT WITH REFLEX DIFFERENTIAL, BODY FLUID STAT 11/28/2024 3:10 PM EST CRYSTAL IDENTIFICATION, BODY FLUID STAT 11/28/2024 3:10 PM EST CULTURE BODY FLUID WITH GRAM STAIN STAT 11/28/2024 3:10 PM EST XR KNEE 4+ VIEWS RIGHT STAT 11/28/2024 1:21 PM EST VAS US DUPLEX LOWER EXT VENOUS RIGHT STAT 11/28/2024 1:19 PM EST Pain of right lower extremity [facility] SCREENING DIGITAL Routine 02/05/2021 6:47 PM EDT Encounter for screening mammogram for malignant neoplasm of breast [facility] DEXA AXIAL SKELETON Routine 02/05/2021 3:38 PM EDT Encounter for screening for osteoporosis from Last 3 Months or Most Recently Relevant to Health Maintenance Results * VA ARTHROCENTESIS/ASPIRATION/INJECTION MAJOR JOINT/BURSA W U/S GUIDANCE, ARTHROCENTESIS/FNA (11/28/2024 3:13 PM EST) Narrative Razia Pak, - 11/28/2024 3:13 PM EST STEPHANIE Sifuentes ? 11/30/2024 10:15 PM Arthrocentesis Date/Time: 11/28/2024 3:13 PM Performed by: STEPHANIE Sifuentes Authorized by: Razia Pak DO ?? Consent: ??Consent obtained: ??Written ??Consent given by: ??Patient ??Risks, benefits, and alternatives were discussed: yes ?Risks discussed: ??Bleeding, infection, pain, poor cosmetic result, nerve damage and incomplete drainage ??Alternatives discussed: ??Alternative treatment, observation and referral Barton protocol: ??Patient identity confirmed: ??Verbally with patient [...] Razia Pak DO IN CLINIC/BEDSIDE ORDERABLES * Cell count with reflex differential, body fluid (11/28/2024 3:10 PM EST) Body Fluid Total Nucleated Cells 1,880 /mm3 LAB HEMETOLOGY METHOD 11/28/2024 4:44 PM EST [facility] Body Fluid RBC 256,000 /mm3 LAB HEMETOLOGY METHOD 11/28/2024 4:44 PM [facility] Body Fluid Color Red 11/28/2024 4:44 PM EST [facility] Body Fluid Clarity Bloody 11/28/2024 4:44 PM EST [facility] Body Fluid Source Knee, Right 11/28/2024 4:44 PM [facility] Aspirate Structure of right knee region / Unknown 11/28/2024 3:10 PM EST 11/28/2024 3:15 PM EST [facility] - 11/28/2024 4:44 PM EST No reference ranges have been established for body fluids. Clinical correlation recommended. Elena BROWN LAB BODY FLUIDS AND STOOLS ORDERABLES Performing Organization Address [facility]/ZIP Co de Phone Number [facility] [address] [place] [address], [place] [phone] * Culture body fluid with gram stain (11/28/2024 3:10 PM EST) Fluid Culture No growth at 3 days LAB MICROBIOLOGY METHOD 12/01/2024 11:26 AM EST [facility] Gram Stain Result Few Polymorphonuclear leukocytes 12/01/2024 11:26 AM EST [facility] Gram Stain Result No epithelial cells seen 12/01/2024 11:26 AM [facility] Gram Stain Result No organisms seen 12/01/2024 11:26 AM [facility] Aspirate Structure of right knee region / Unknown 11/28/2024 3:10 PM EST 11/28/2024 3:15 PM EST [facility] - 12/01/2024 11:26 AM EST Testing performed on Unspun fluid, Quantity not sufficient to spin. Elena BROWN LAB MICROBIOLOGY - GENERAL ORDERABLES Performing Organization Address [facility]/ZIP Co de Phone Number [facility] [address] [place] [address], [place] [phone] * Differential body fluid (11/28/2024 3:10 PM EST) Fluid Neutrophils % 33 % 11/28/2024 4:44 PM EST [facility] Fluid Lymphocytes % 7 % 11/28/2024 4:44 PM [facility] Fluid Monocytes/Macrop hages 60 % 11/28/2024 4:44 PM [facility] Fluid Eosinophils % 0 % 11/28/2024 4:44 PM [facility] Fluid Basophils % 0 % 11/28/2024 4:44 PM EST [facility] Fluid Other Cells % 0 % 11/28/2024 4:44 PM EST [facility] Aspirate Structure of right knee region / Unknown 11/28/2024 3:10 PM EST 11/28/2024 3:15 PM EST Narrative [facility] - 11/28/2024 4:44 PM EST No reference ranges have been established for body fluids. Clinical correlation recommended. Elena BROWN LAB BODY FLUIDS AND STOOLS ORDERABLES Performing Organization Address City/[facility]/ZIP Co de Phone Number [facility] [address] [place] [address], [place] [phone] * Body fluid crystal (11/28/2024 3:10 PM EST) Crystals, Fluid No diagnostic crystals seen No diagnostic crystals seen 11/28/2024 4:44 PM EST [facility] Synovial Fluid Structure of right knee region / Unknown 11/28/2024 3:10 PM EST 11/28/2024 3:14 PM EST Elena BROWN LAB BODY FLUIDS AND STOOLS ORDERABLES Performing Organization Address City/[facility]/ZIP Co de Phone Number [facility] [address] [place] [address], [place] [phone] * XR Knee 4+ Views Right (11/28/2024 1:21 PM EST) Anatomical Region Laterality Modality Lower Extremities, Knee Right Radiogra phic Imaging 11/28/2024 1:24 PM EST Impressions 11/28/2024 1:25 PM EST Impression: 1. Soft tissue swelling. 2. Small joint effusion. 3. Minimal, nonspecific arthritic changes. Kenrick BROWN ([id number]) -------- FINAL REPORT -------- Dictated By: Anay Hurtado Dictated Date: 11/28/2024 13:24 ET Assigned Physician: Anay Hurtado Reviewed and Electronically Signed By: Anay Hurtado Signed Date: 11/28/2024 13:25 ET Workstation ID: [id number] Transcribed By: Self Edit Transcribed Date: 11/28/2024 [...] 3. Minimal, nonspecific arthritic changes. Telerad PA ([id number]) -------- FINAL REPORT -------- Dictated By: Anay Hurtado Dictated Date: 11/28/2024 13:24 ET Assigned Physician: Anay Hurtado Reviewed and Electronically Signed By: Anay Hurtado Signed Date: 11/28/2024 13:25 ET Workstation ID: [id number] Transcribed By: Self Edit Transcribed Date: 11/28/2024 13:24 ET Razia Pak DO IMG XR PROCEDURES * Vascular US Duplex Lower Extremity Venous Right (11/28/2024 1:19 PM EST) Anatomical Region Laterality Modality Vascular, Abdomen Ultrasound 11/28/2024 1:23 PM EST Impressions 11/28/2024 1:24 PM EST Impression: No evidence of deep vein thrombosis in the right femoral-popliteal venous segment. Knee joint effusion. Telerad STEPHANIE ([id number]) -------- FINAL REPORT -------- Dictated By: Anay Hurtado Dictated Date: 11/28/2024 13:23 ET Assigned Physician: Anay Hurtado Reviewed and Electronically Signed By: Anay Hurtado Signed Date: 11/28/2024 13:24 ET Workstation ID: [id number] Transcribed By: Self Edit Transcribed Date: 11/28/2024 [...] the right femoral-popliteal venoussegment. Knee joint effusion. Telerad STEPHANIE ([id number]) -------- FINAL REPORT -------- Dictated By: Anay Hurtado Dictated Date: 11/28/2024 13:23 ET Assigned Physician: Anay Hurtado Reviewed and Electronically Signed By: Anay Hurtado Signed Date: 11/28/2024 13:24 ET Workstation ID: [id number] Transcribed By: Self Edit Transcribed Date: 11/28/2024 13:23 ET Elena BROWN CV VASCULAR PROC EDURES * JOSE SCREENING DIGITAL (02/05/2021 6:47 PM EDT) Anatomical Region Laterality Modality Mammography 02/05/2021 2:55 PM EDT Narrative 02/05/2021 6:47 PM EDT [facility] Diagnostic Imaging Department [address] [place] [address] Patient: ??VELIA SHARPE ?/Age/Sex: 1945 - 75 - F Unit#: ??[id number] ? Location/Status: ??SPDIMAM/REG CLI ? Mnemonic/Ordering Site: ??DIGSC/SPMAM Ordering Physician: ??CLAUDIA MANCINI MD [facility] Screening Digital - 02/05/21 - 811 History: Bilateral breast cancer screening. Technique: Digital mammography. Conventional CC and MLO projections with tomosynthesis MLO views and computer aided detection. Comparison: [facility] and outside mammography 10/03/2017 and dating back to 10/12/2004. Findings: ??Breast tissue consists of a combination of fatty and fibroglandular elements (category b density) (as calculated by [employer] software). There are benign calcifications bilaterally and bilateral asymmetries that are without suspicious interval change. ??No suspicious group of calcification, architectural distortion, suspicious mass or suspicious asymmetry. Impression: ??No evidence of malignancy. BIRADS Category 2, benign findings, 3342F 74517, [address]656 Note: Patient information entered into a reminder system with a target due date for the next mammogram: ??CPT II 7025F Dictating Physician: ??FOREST ODOM MD Electronically Signed by: ??FOREST ODOM MD Dic Date/Time: ??02/05/211839 Sign date/Time: ??02/05/211846 Procedure Note Forest Odom MD - 10/22/2022 [facility] Diagnostic Imaging Department [address] [place] [address] Patient: DELLVELIA Fairchild /Age/Sex: 1945 - 75 - F Unit#: [id number] Location/Status: [facility] Mnemonic/Ordering Site: [facility] Ordering Physician: CLAUDIA MANCINI MD Jose Screening Digital - 02/05/211551 History: Bilateral breast cancer screening. Technique: Digital mammography. Conventional CC and MLO projections with tomosynthesis MLO views and computer aided detection. Comparison: [facility] and outside mammography 10/03/2017 anddating back to 10/12/2004. Findings: Breast tissue consists of a combination of fatty andfibroglandular elements (category b density) (as calculated by [employer] software).There are benign calcifications bilaterally and bilateral asymmetries that arewithout suspicious interval change. No suspicious group of calcification,architectural distortion, suspicious mass or suspicious asymmetry. Impression: No evidence of malignancy. BIRADS Category 2, benign findings, 3342F 71673, 23611 Note: Patient information entered into a reminder system with a target duedate for the next mammogram: CPT II 7025F Dictating Physician: FOREST ODOM MD Electronically Signed by: FOREST ODOM MD Dic Date/Time: 02/05/211839 Sign date/Time: 02/05/211846 Claudia Mancini MD IMG BI PROCEDURES * JOSE DEXA AXIAL SKELETON (02/05/2021 3:38 PM EDT) Anatomical Region Laterality Modality Mammography 02/05/2021 2:55 PM EDT Narrative 02/05/2021 3:38 PM EDT [facility] Diagnostic Imaging Department [address] [place] [address] Patient: ??VELIA SHARPE ?/Age/Sex: 1945 - 75 - F Unit#: ??[id number] ? Location/Status: ??SPDIMAM/REG CLI ? Mnemonic/Ordering Site: ??MAMDEXAAX/SPMAM Ordering Physician: ??CLAUDIA MANCINI MD Jose Dexa Axial Skeleton - 02/05/211516 HISTORY: Post menopausal woman with hormone depletion for screening bone densitometry. The patient is on calcium supplement with Vitamin D. TECHNIQUE: Bone densitometry is performed utilizing dual energy x-ray absorptiometry (DEXA) in the [employer]ICE[employer]ATE.COM unit. The lumbar spine is evaluated in the AP projection and L1 through L4 are utilized. The proximal femora are evaluated in the AP projection bilaterally. FINDINGS: AP spine: Bone mineral density: 1.114 gm/cm2 T-score: -0.4 Z-score: 1.2 Dual Femur (mean): Bone mineral density: 0.854 gm/cm2 T-score: -1.2 Z-score: 0.3 IMPRESSION: Normal bone mineralization in the lumbar spine. Osteopenia in the bilateral hips. Comparison with prior examination 10/03/2017, there is decreased bone mineralization within the lumbar spine and decreased bone mineralization within the left proximal femur and decreased bone mineralization in the right proximal femur. [id number] A report detailing these results has been enclosed. Dictating Physician: ??SHE NEIL MD Electronically Signed by: ??SHE NEIL MD Dic Date/Time: ??02/05/21 1537 Sign date/Time: ??02/05/21 1538 Procedure Note She Neil MD - 10/22/2022 [facility] Diagnostic Imaging Department [address] [place] [address] Patient: DELLVELIA Fairchild D.O.B./Age/Sex: 1945 - 75 - F Unit#: [id number] Location/Status: [facility]/REG CLI Mnemonic/Ordering Site: [facility] Ordering Physician: CLAUDIA MANCINI MD Jose Dexa Axial Skeleton - 02/05/21 - 1517 HISTORY: Post menopausal woman with hormone depletion for screening bone densitometry. The patient is on calcium supplement with Vitamin D. TECHNIQUE: Bone densitometry is performed utilizing dual energy x-ray absorptiometry (DEXA) in the [employer]PLATE[employer]COM unit. The lumbar spine isevaluated in the AP projection and L1 through L4 are utilized. The proximal femoraare evaluated in the AP projection bilaterally. FINDINGS: AP spine: Bone mineral density: 1.114 gm/cm2 T-score: -0.4 Z-score: 1.2 Dual Femur (mean): Bone mineral density: 0.854 gm/cm2 T-score: -1.2 Z-score: 0.3 IMPRESSION: Normal bone mineralization in the lumbar spine. Osteopenia in the bilateral hips. Comparison with prior examination 10/03/2017, there is decreased bone mineralization within the lumbar spine and decreased bone mineralizationwithin the left proximal femur and decreased bone mineralization in the rightproximal femur. [id number] A report detailing these results has been enclosed. Dictating Physician: SHE NEIL MD Electronically Signed by: SHE NEIL MD Dic Date/Time: 02/05/21 1537 Sign date/Time: 02/05/21 1538 Claudia Mancini MD IMG BI PROCEDURES from Last 3 Months or Most Recently Relevant to Health Maintenance Care Teams Piece Goods Clerk Relationship Specialty Start Date End Date Bobby Diaz PA [address] [place] [id number] PCP - General Internal Medicine 11/28/24
== END 2024-12-08 13:10 | disposition home or self-care (01) ==
LOC: HO.HSMS 11:24
PROVIDERS: PCP Physician Assistant; Visit Provider Psychiatry & Neurology Neurology
DX: G20.B2 Parkinson's disease with dyskinesia, with fluctuations (principal); G25.81 Restless legs syndrome
CPT/HCPCS: 98012

== ENCOUNTER → 2024-12-08 11:24 | Outpatient (BNVA) | payer OTHER, SELFPAY | PROVIDERS: PCP Physician Assistant; Visit Provider Psychiatry & Neurology Neurology ==

== ENCOUNTER 2025-01-25 09:29 | Outpatient (AMB) | payer OTHER, SELFPAY ==
--- NOTE | 2025-01-25 09:32 | A.OFFVIS_ITS ---
Vital Signs 01/25/25 09:35 Height 5 ft 3 in Weight 141 lb BMI 25.0 BP 122/70 Blood Pressure Location Rt brachial Position Sitting Pulse 83 Pulse Source Pulse Oximeter Pulse Oximetry (%) 100 Oxygen Delivery Method Room Air Intake Visit Reasons: per MD workload Intake Note: Patient presents for follow up medication episodes per MD added to schedule Allergies ciprofloxacin [From Cipro] Allergy (Mild, Verified 01/25/25 09:36) Difficulty Swallowing Medication List - Last Reconciled 01/25/25 by Mone Landry MD ascorbic acid (vitamin C) ER 500 mg PO DAILY carbidopa-levodopa 25-100 mg 2 tabs PO QID carbidopa-levodopa 25-100 mg ER 1 tab PO BEDTIME cholecalciferol (vitamin D3) 25 mcg PO DAILY coenzyme Q10 100 mg PO DAILY entacapone 200 mg PO QID folic acid 0.4 mg PO DAILY gabapentin 300 mg (3 x 100 mg) PO BEDTIME levothyroxine (Euthyrox) 88 mcg PO DAILY magnesium 200 mg PO DAILY mecobalamin (vitamin B12) 1,000 mcg PO DAILY ropinirole 1 mg PO BEDTIME HPI Comments Details: 79y/o female calls for urgent follow up. she feels her current medications are not lasting long. she also has dyskinesias and OFF periods. In Nov 2024 she had a fall and since then she has right knee pain.she is scheduled to see ortho next week..she is doing [facility] at [facility]. she also reports increase in nighttime symptoms.she cannot get comfortable- leg discomfort. walking around feels better. she is able to chop vegetables, and able to use her hands better.No tremors, Bowel movements are stable. Her gait and balance are slower No constipation Memory is stable and speech is ok. she is independent in most ADLs. She does not drive anymore.Her partner helps with laundry.Back is usually triggered when she does yard work. [facility] Medical History Parkinson's disease with dyskinesia Thyroid disease Parkinson's disease Restless legs syndrome (RLS) Arthritis Family History Father Liver disease Mother Kidney disease Heart disease Family/Other Pat's disease DM (diabetes mellitus) Social History Alcohol intake: current Alcohol intake frequency: a few times a month Alcohol type: wine Patient Tobacco Use Status: Never used Tobacco Physical Exam Vital Signs: Last Vital Signs Pulse 83 01/25/25 09:35 BP 122/70 01/25/25 09:35 Pulse Ox 100 01/25/25 09:35 Oxygen Delivery Method Room Air 01/25/25 09:35 BMI result Body Mass Index 25.0 Const General: cooperative and healthy appearing Nutritional Appearance: average body habitus Orientation/consciousness: patient oriented x3 Neuro Other: no tremors Mild voice change dyskinesia - mild to moderate Keeps her right hand stiff Mild stoop - keeps her right UE stiff No arm swing right UE normal stride , stooped General: patient oriented x3, tone normal, moves all extremities and no focal motor deficits Motor exam (neuro): 5/5 motor strength present throughout Coordination: [id number]-thdg test normal Assessment & Plan Assessment & Plan (1) Parkinson's disease with dyskinesia: Code(s): G20.B1 - Parkinson's disease with dyskinesia, without mention of fluctuations Category: Medical Qualifiers: Fluctuating manifestations: with fluctuating manifestations Qualified Code(s): G20.B2 - Parkinson's disease with dyskinesia, with fluctuations (2) Restless legs syndrome (RLS): Code(s): G25.81 - Restless legs syndrome Category: Medical Plan continue Sinemet 25/100 2 tabs qid- change timings to 6am-10am,2pm,6pm entacapone 200mg qid sinemet 25/100 ER 1 tab at 9 PM Requip 1mg qhs - add amantadine 50mg qam Increase gabapentin 100mg 3 caps qhs Continue exercises Increase fluids Medications: New amantadine HCl 50 mg (1/2 x 100 mg) PO QAM 30 tabs 5RF Coding Level of Care Code Est Pt Level 4 (98468) Complex EM visit Add On G2211 Diagnoses Parkinson's disease with dyskinesia and fluctuating manifestations G20.B2 Fluctuating manifestations: with fluctuating manifestations Restless legs syndrome (RLS) G25.81
[2025-01-25 09:35] VITALS: BP 122/70; PULSE 83; O2SAT 100; BMI 25.0
--- OUTSIDE RECORDS SUMMARY | 2025-01-25 10:39 | XMS_ITS | Clinical Summary ---
Author Organization [facility] Address [address] [place] [address] Phone Care Team Providers Care Claims Service Representative Name Role Phone Bobby Diaz Primary Care Provider [phone] Allergies Active Allergy Reactions Criticality Noted Date Comments Ciprofloxacin Swelling 11/28/2024 Eye drops Encounters Date Type Department Care Team Description 11/28/2024 12:27 PM EST - 11/28/2024 5:[address] [facility] Emergency [address] [place] [address] Razia Pak DO Patel, Parth B, MD Pain of right lower extremity (Primary Dx); Knee effusion, right Discharge Disposition: Home or Self Care from Last 3 Months Social History Tobacco Use Types Packs/Day Years Used Date Smoking Tobacco: Never Assessed Comments Unknown Sex and Gender Information Value Date Recorded Sex Assigned at Not on file Legal Sex Female 2:09 PM EST Gender Identity Not on file Sexual Orientation Not on file Last Filed Vital Signs [...] DTaP,Tdap,and Td Vaccines (1 - Tdap) 1966 Pneumococcal Vaccine: 50+ Years (1 of 1 - PCV) 1997 Zoster Vaccines (1 of 2) 1997 RSV Immunization Patients 60 + Years Old [...] patient's age to complete this topic Meningococcal B Vacine Aged Out No lo nger eligible based on patient's age to complete this topic RSV Immunization Patients Under 20 months Aged Out No longer eligible based on patient's age to complete this topic Varicella Vaccines Aged Out No longer eligible based on patient's age to complete this topic Procedures Procedure Name Priority Date/Time Associated Diagnosis Comments HC ARTHROCENTESIS/FNA Routine 11/28/2024 3:[address] ARTHROCENTESIS/ASPIRA TION/INJECTION MAJOR JOINT/BURSA W U/S GUIDANCE [...] PM EST Pain of right lower extremity [facility] SCREENING DIGITAL Routine 02/05/2021 6:47 PM EDT Encounter for screening mammogram for malignant neoplasm of breast [facility] DEXA AXIAL SKELETON Routine 02/05/2021 3:38 PM EDT Encounter for screening for osteoporosis from Last 3 Months or Most Recently Relevant to Health Maintenance Results * CT ARTHROCENTESIS/ASPIRATION/INJECTION MAJOR JOINT/BURSA W U/S GUIDANCE, HC ARTHROCENTESIS/FNA (11/28/2024 3:13 PM EST) Razia Edgar DO - 11/28/2024 3:13 PM EST STEPHANIE Sifuentes ? 11/30/2024 10:15 PM Arthrocentesis Date/Time: 11/28/2024 3:13 PM Performed by: STEPHANIE Sifuentes Authorized by: Razia Pak DO ?? Consent: ??Consent obtained: ??Written ??Consent given by: ??Patient ??Risks, benefits, and alternatives were discussed: yes ?Risks discussed: ??Bleeding, infection, pain, poor cosmetic result, nerve damage and incomplete drainage ??Alternatives discussed: ??Alternative treatment, observation and referral [place] protocol: ??Patient identity confirmed: ??Verbally with patient [...] ??Procedure completion: ??Tolerated well, no immediate complications us Zakidai Arteaga Pak DO IN CLINIC/BEDSIDE ORDERAB LES Final Result * Cell count with reflex differential, body fluid (11/28/2024 3:10 PM EST) Body Fluid Total Nucleated Cells 1,880 /mm3 LAB HEMETOLOGY METHOD 11/28/2024 4:44 PM EST [facility] Body Fluid RBC 256,000 /mm3 LAB HEMETOLOGY METHOD 11/28/2024 4:44 PM EST [facility] Body Fluid Color Red 11/28/2024 4:44 PM EST [facility] Body Fluid Clarity Bloody 11/28/2024 4:44 PM EST [facility] Body Fluid Source Knee, Right 11/28/2024 4:44 PM EST [facility] Aspirate Structure of right knee region / Unknown 11/28/2024 3:10 PM EST 11/28/2024 3:15 PM EST Narrative [facility] - 11/28/2024 4:44 PM EST No reference ranges have been established for body fluids. Clinical correlation recommended. Elena BROWN LAB BODY FLUIDS AND STOO LS ORDERABLES Final Result [facility] [address] [place] [address], [place] [phone] * Culture body fluid with gram stain (11/28/2024 3:10 PM EST) Fluid Culture No growth at 3 days LAB MICROBIOLOGY METHOD 12/01/2024 11:26 AM EST [facility] Gram Stain Result Few Polymorphonuclear leukocytes 12/01/2024 11:26 AM [facility] Gram Stain Result No epithelial cells seen 12/01/2024 11:26 AM [facility] Gram Stain Result No organisms seen 12/01/2024 11:26 AM [facility] Aspirate Structure of right knee region / Unknown 11/28/2024 3:10 PM EST 11/28/2024 3:15 PM EST [facility] - 12/01/2024 11:26 AM EST Testing performed on Unspun fluid, Quantity not sufficient to spin. Elena BROWN LAB MICROBIOLOGY - [facility] ORDERABLES Final Result [facility] [address] [place] [address], * Differential body fluid (11/28/2024 3:10 PM EST) Fluid Neutrophils % 33 % 11/28/2024 4:44 PM [facility] Fluid Lymphocytes % 7 % 11/28/2024 4:44 PM [facility] Fluid Monocytes/Macrop hages 60 % 11/28/2024 4:44 PM [facility] Fluid Eosinophils % 0 % 11/28/2024 4:44 PM [facility] Fluid Basophils % 0 % 11/28/2024 4:44 PM [facility] Fluid Other Cells % 0 % 11/28/2024 4:44 PM [facility] Aspirate Structure of right knee region / Unknown 11/28/2024 3:10 PM EST 11/28/2024 3:15 PM EST Narrative [facility] - 11/28/2024 4:44 PM EST No reference ranges have been established for body fluids. Clinical correlation recommended. Elena Allison Mcarthur PA LAB BODY FLUIDS AND STOO LS ORDERABLES Final Result Performing Organization Address [facility] Co de Phone Number [facility] [address] [place] [address], [place] [phone] * Body fluid crystal (11/28/2024 3:10 PM EST) Crystals, Fluid No diagnostic crystals seen No diagnostic crystals seen 11/28/2024 4:44 PM EST [facility] Synovial Fluid Structure of right knee region / Unknown 11/28/2024 3:10 PM EST 11/28/2024 3:14 PM EST Elena Allison Mcarthur PA LAB BODY FLUIDS AND STOO LS ORDERABLES Final Result Performing Organization Address [facility] de Phone Number [facility] [address] [place] [address], [place] [phone] * XR Knee 4+ Views Right (11/28/2024 1:21 PM EST) Anatomical Region Laterality Modality Lower Extremities, Knee Right Radiogra phic Imaging 11/28/2024 1:2 4 PM EST Impressions 11/28/2024 1:25 PM EST Impression: 1. Soft tissue swelling. 2. Small joint effusion. 3. Minimal, nonspecific arthritic changes. Teleeamon BROWN ([id number]) -------- FINAL REPORT -------- Dictated By: Anay Hurtado Dictated Date: 11/28/2024 13:24 ET Assigned Physician: Anay Hurtado Reviewed and Electronically Signed By: Anay Hurtado Signed Date: 11/28/2024 13:25 ET Workstation ID: [id number] Transcribed By: Self Edit Transcribed Date: 11/28/2024 [...] joint effusion. 3. Minimal, nonspecific arthritic changes. FiveCubitseamon BROWN ([id number]) -------- FINAL REPORT -------- Dictated By: Anay Hurtado Dictated Date: 11/28/2024 13:24 ET Assigned Physician: Anay Hurtado Reviewed and Electronically Signed By: Anay Hurtado Signed Date: 11/28/2024 13:25 ET Workstation ID: [id number] Transcribed By: Self Edit Transcribed Date: 11/28/2024 13:24 ET us Razia Pak DO IMG XR PROCEDURES Final R esult * Vascular US Duplex Lower Extremity Venous Right (11/28/2024 1:19 PM EST) Anatomical Region Laterality Modality Vascular, Abdomen Ultrasound 11/28/2024 1:23 PM EST Impressions 11/28/2024 1:24 PM EST Impression: No evidence of deep vein thrombosis in the right femoral-popliteal venous segment. Knee joint effusion. FiveCubitsrad STEPHANIE ([id number]) -------- FINAL REPORT -------- Dictated By: Anay Hurtado Dictated Date: 11/28/2024 13:23 ET Assigned Physician: Anay Hurtado Reviewed and Electronically Signed By: Anay Hurtado Signed Date: 11/28/2024 13:24 ET Workstation ID: [id number] Transcribed By: Self Edit Transcribed Date: 11/28/2024 [...] the right femoral-popliteal venoussegment. Knee joint effusion. Teleeamon BROWN ([id number]) -------- FINAL REPORT -------- Dictated By: Anay Hurtado Dictated Date: 11/28/2024 13:23 ET Assigned Physician: Anay Hurtado Reviewed and Electronically Signed By: Anay Hurtado Signed Date: 11/28/2024 13:24 ET Workstation ID: [id number] Transcribed By: Self Edit Transcribed Date: 11/28/2024 13:23 ET Elena BROWN CV VASCULAR PROCEDURES F inal Result * JOSE SCREENING DIGITAL (02/05/2021 6:47 PM EDT) Anatomical Region Laterality Modality Mammography 02/05/2021 2:55 PM EDT Narrative 02/05/2021 6:47 PM EDT [facility] Diagnostic Imaging Department [address] [place] [address] Patient: ??ZANDRAVELIA Gurinder ?/Age/Sex: 1945 75 - F Unit#: ??[id number] ? Location/Status: ??SPDIMAM/REG CLI ? Mnemonic/Ordering Site: ??DIGSC/SPMAM Ordering Physician: ??CLAUDIA SANCHEZ MD Jose Screening Digital - 02/05/211551 History: Bilateral breast cancer screening. Technique: Digital mammography. Conventional CC and MLO projections with tomosynthesis MLO views and computer aided detection. Comparison: [facility] and outside mammography 10/03/2017 and dating back to 10/12/2004. Findings: ??Breast tissue consists of a combination of fatty and fibroglandular elements (category b density) (as calculated by [employer] software). There are benign calcifications bilaterally and bilateral asymmetries that are without suspicious interval change. ??No suspicious group of calcification, architectural distortion, suspicious mass or suspicious asymmetry. Impression: ??No evidence of malignancy. BIRADS Category 2, benign findings, 3342F 06811, 65793 Note: Patient information entered into a reminder system with a target due date for the next mammogram: ??CPT II 7025F Dictating Physician: ??FOREST JACKSON MD Electronically Signed by: ??FOREST JACKSON MD Dic Date/Time: ??02/05/211839 Sign date/Time: ??02/05/211846 Procedure Note Forest Jackson MD - 10/22/2022 [facility] Diagnostic Imaging Department [address] [place] [address] Patient: SARA SHARPEALBIN MoO.B./Age/Sex: 1945 - 75 - F Unit#: [id number] [facility]/Ordering Site: [facility] Ordering Physician: CLAUDIA SANCHEZ MD Jose Screening Digital - 02/05/21 776 History: Bilateral breast cancer screening. Technique: Digital mammography. Conventional CC and MLO projections with tomosynthesis MLO views and computer aided detection. Comparison: [facility] and outside mammography 10/03/2017 anddating back to 10/12/2004. Findings: Breast tissue consists of a combination of fatty andfibroglandular elements (category b density) (as calculated by [employer] software).There are benign calcifications bilaterally and bilateral asymmetries that arewithout suspicious interval change. No suspicious group of calcification,architectural distortion, suspicious mass or suspicious asymmetry. Impression: No evidence of malignancy. BIRADS Category 2, benign findings, 3342F 97153, 40455 Note: Patient information entered into a reminder system with a target duedate for the next mammogram: CPT II 7025F Dictating Physician: FOREST JACKSON MD Electronically Signed by: FOREST JACKSON MD Dic Date/Time: 02/05/211839 Sign date/Time: 02/05/211846 us Claudia Sanchez MD IMG BI PROCEDURES Final Resul t * JOSE DEXA AXIAL SKELETON (02/05/2021 3:38 PM EDT) Anatomical Region Laterality Modality Mammography 02/05/2021 2:55 PM EDT Narrative 02/05/2021 3:38 PM EDT [facility] Diagnostic Imaging Department [address] [place] [address] Patient: ??ZANDRAVELIA AGRAWAL Gurinder ?/Age/Sex: 1945 - Unit#: ??[id number] ? Location/Status: ??SPDIMAM/REG CLI ? Mnemonic/Ordering Site: ??MAMDEXAAX/SPMAM Ordering Physician: ??CLAUDIA SANCHEZ MD [facility] Dexa Axial Skeleton - 02/05/211516 HISTORY: Post menopausal woman with hormone depletion for screening bone densitometry. The patient is on calcium supplement with Vitamin D. TECHNIQUE: Bone densitometry is performed utilizing dual energy x-ray absorptiometry (DEXA) in the [employer] unit. The lumbar spine is evaluated in [...] bone mineralization in the right proximal femur. [id number] A report detailing these results has been enclosed. Dictating Physician: ??SHE NEIL MD Electronically Signed by: ??SHE NEIL MD Dic Date/Time: ??02/05/21 1537 Sign date/Time: ??02/05/21 153 Procedure Note She Neil MD - 10/22/2022 [facility] Diagnostic Imaging Department [address] [place] [address] Patient: ZANDRAVELIA D.O.B./Age/Sex: 1945 - 75 - F Unit#: [id number] Location/Status: SPDIMAM/REG CLI [facility] Ordering Physician: CLAUDIA SANCHEZ MD Jose Dexa Axial Skeleton - 02/05/21 - 1517 HISTORY: Post menopausal woman with hormone depletion for screening bone densitometry. The patient is on calcium supplement with Vitamin D. TECHNIQUE: Bone densitometry is performed utilizing dual energy x-ray absorptiometry (DEXA) in the [employer] unit. The lumbar spine isevaluated in the [...] decreased bone mineralization in the rightproximal femur. [id number] A report detailing these results has been enclosed. Dictating Physician: SHE NEIL MD Electronically Signed by: SHE NEIL MD Dic Date/Time: 02/05/21 1537 Sign date/Time: 02/05/21 1538 Claudia Sanchez MD IMG BI PROCEDURES Final Resul t from Last 3 Months or Most Recently Relevant to Health Maintenance Insurance [employer] Care Teams Claims Service Representative Relationship Specialty Start Date End Date Bobby Diaz PA [address] [place] [address] PCP - General Internal Medicine 11/28/24
== END 2025-01-25 10:26 | disposition home or self-care (01) ==
LOC: HO.HSMS 09:30
PROVIDERS: PCP Physician Assistant; Visit Provider Psychiatry & Neurology Neurology
DX: G20.B2 Parkinson's disease with dyskinesia, with fluctuations (principal); G25.81 Restless legs syndrome
CPT/HCPCS: 99214; G2211

== ENCOUNTER 2025-03-17 10:54 | Outpatient (AMB) | payer OTHER, SELFPAY ==
--- NOTE | 2025-03-17 10:57 | MHC.OFFVIS ---
Vital Signs 03/17/25 10:58 Height 5 ft 3 in Weight 138 lb BMI 24.4 BP 108/72 Blood Pressure Location Rt brachial Position Sitting Intake Visit Reasons: Follow up Intake Note: Patient presents for med trial Allergies ciprofloxacin [From Cipro] Allergy (Mild, Verified 03/17/25 11:01) Difficulty Swallowing Medication List - Last Reconciled 03/17/25 by Mone Landry MD ascorbic acid (vitamin C) ER 500 mg PO DAILY carbidopa-levodopa 25-100 mg 2 tabs PO QID carbidopa-levodopa 25-100 mg ER 1 tab PO BEDTIME cholecalciferol (vitamin D3) 25 mcg PO DAILY entacapone 200 mg PO QID folic acid 0.4 mg PO DAILY gabapentin 300 mg (3 x 100 mg) PO BEDTIME levothyroxine (Euthyrox) 88 mcg PO DAILY magnesium 200 mg PO DAILY mecobalamin (vitamin B12) 1,000 mcg PO DAILY ropinirole 1 mg PO BEDTIME HPI Comments Details: 79y/o female calls for follow up with her son alethea applied for FMLA ( he did not bring his paperwork today) she reported numbness from waist down when she lies down . MRI L spine shows - multilevel deg changes she also has dyskinesias and OFF periods. she reports not feeling good- feels lighteaded and feels her OFF periods are significant and she has some sensory symptoms as well. she did not notice anything with amantadine so she stopped it afetr 1 week .she is doing LSVT at [facility]. she also reports increase in nighttime symptoms.she cannot get comfortable- leg discomfort. walking around feels better. she is able to chop vegetables, and able to use her hands better.No tremors, Bowel movements are stable. Her gait and balance are slower No constipation Memory is stable and speech is ok. she is independent in most ADLs. She does not drive anymore.Her partner helps with laundry.Back is usually triggered when she does yard work. [facility] Medical History Parkinson's disease with dyskinesia Thyroid disease Parkinson's disease Restless legs syndrome (RLS) Arthritis Family History Father Liver disease Mother Kidney disease Heart disease Family/Other Pat's disease DM (diabetes mellitus) Social History Alcohol intake: current Alcohol intake frequency: a few times a month Alcohol type: wine Patient Tobacco Use Status: Never used Tobacco Physical Exam Vital Signs: Last Vital Signs BP 108/72 03/17/25 10:58 BMI result Body Mass Index 24.4 Const General: cooperative and healthy appearing Nutritional Appearance: average body habitus Orientation/consciousness: patient oriented x3 Neuro Other: no tremors Mild voice change dyskinesia - mild to moderate Keeps her right hand stiff Mild stoop - keeps her right UE stiff No arm swing right UE normal stride , stooped General: patient oriented x3, tone normal, moves all extremities and no focal motor deficits Motor exam (neuro): 5/5 motor strength present throughout Coordination: [id number] test normal Assessment & Plan Assessment & Plan (1) Parkinson's disease with dyskinesia: Code(s): G20.B1 - Parkinson's disease with dyskinesia, without mention of fluctuations Category: Medical Qualifiers: Fluctuating manifestations: with fluctuating manifestations Qualified Code(s): G20.B2 - Parkinson's disease with dyskinesia, with fluctuations (2) Restless legs syndrome (RLS): Code(s): G25.81 - Restless legs syndrome Category: Medical Plan continue Sinemet 25/100 1 1/2 tabs 6 times a day - change timings to 6am 9am12 noon 3pm 6pm 9pm she tried rytary in the past and did not tolerate , was expensive. she was tried rasagiline by entacapone 200mg qid sinemet 25/100 ER 1 tab at Bid Requip 1mg qhs - Add clonazepam 0.5 mg 1/2 tab qhs she recently did PT at [facility] Future considertaions- gocovri duopa Onapgo DBS gabapentin 100mg 3 caps qhs Continue exercises Increase fluids Orders: Orders PT Evaluation and Treatment Today G20.B2 - Parkinson's disease with dyskinesia, with fluctuations Medications: Changed From carbidopa-levodopa 25-100 mg 2 tabs PO QID 240 tabs 6RF To carbidopa-levodopa 25-100 mg 6am, 9am,12pm,3pm,6pm,9pm 1.5 tabs PO .6 times day 240 tabs 6RF From carbidopa-levodopa 25-100 mg ER 1 tab PO BEDTIME 30 tabs 3RF To carbidopa-levodopa 25-100 mg ER 1 tab PO BID 60 tabs 3RF Coding Level of Care Code Est Pt Level 5 (95471) Complex EM visit Add On G2211 Diagnoses Parkinson's disease with dyskinesia and fluctuating manifestations G20.B2 Fluctuating manifestations: with fluctuating manifestations Restless legs syndrome (RLS) G25.81 Time Spent (min) 45
[2025-03-17 10:58] VITALS: BP 108/72; BMI 24.4
--- OUTSIDE RECORDS SUMMARY | 2025-03-17 12:03 | XMS_ITS | Clinical Summary ---
Author Organization [facility] Address [address] [place] [address] Phone Care Team Providers Care [employer] Architect Name Role Phone Bobby Diaz Primary Care Provider [phone] Allergies Active Allergy Reactions Criticality Noted Date Comments Ciprofloxacin Swelling 11/28/2024 Eye drops Encounters Date Type Department Care Team Description 03/16/2025 12:30 PM EDT - 03/16/2025 11:59 PM EDT Hospital Encounter [facility] MRI [address] [place] [address] Muscle weakness (generalized); Paresthesia of skin; Parkinson's disease without dyskinesia, without mention of fluctuations (CMS/HCC V24, CMS/HCC V28) Discharge Disposition: Home or Self Care from [...] Vaccines (1 of 2) 1997 RSV Immunization Adult Patients (1 - 1-dose 75+ series) 2022 COVID-19 Vaccine (1 - 2023-2 5 season) 2024 Depression Screening 08/27/2024 Falls Risk Assessment 08/27/2024 Hepatitis C Screening 08/27/2024 Medicare Annual Wellness Visit 08/27/2024 Social Influencers of Health Screening 08/27/2024 Influenza Vaccine (Season Ended) 2025 10/15/2022, 09/14/2021 Osteoporosis Screening (Bone Density Screening) 02/05/2031 02/05/2021 [...] age to complete this topic Meningococcal B Vaccine Aged Out No l onger eligible based on patient's age to complete this topic RSV Immunization Patients Under 20 months Aged Out No longer eligible based on patient's age to complete this topic Varicella Vaccines Aged Out No longer eligible based on patient's age to complete this topic Procedures Procedure Name Priority Date/Time Associated Diagnosis Comments MR LUMBAR SPINE WO CONTRAST Routine 03/16/2025 1:43 PM EDT Muscle weakness (generalized) Paresthesia of skin Parkinson's disease without dyskinesia, without mention of fluctuations (CMS/HCC V24, CMS/HCC V28) TRIIODOTHYRONINE FREE Routine 03/10/2025 12:19 PM EDT Muscle weakness (generalized) 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 (CMS/HCC V24, CMS/HCC V28) FREE THYROXINE WITH REFLEX TO FREE TRIIODOTHYRONINE Routine 03/10/2025 12:19 PM EDT Muscle weakness (generalized) 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 (CMS/HCC V24, CMS/HCC V28) CBC WITH AUTO DIFFERENTIAL Routine 03/10/2025 12:19 PM EDT Muscle weakness (generalized) 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 (CMS/HCC V24, CMS/HCC V28) MAGNESIUM Routine 03/10/2025 12:19 PM EDT Muscle weakness (generalized) 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 (CMS/HCC V24, CMS/HCC V28) VITAMIN B12 Routine 03/10/2025 12:19 PM EDT Muscle weakness (generalized) 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 (CMS/HCC V24, CMS/HCC V28) THYROID STIMULATING HORMONE WITH REFLEX TO FREE T4 AND FREE T3 Routine 03/10/2025 12:19 PM EDT Muscle weakness (generalized) 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 (CMS/HCC V24, CMS/HCC V28) COMPREHENSIVE METABOLIC PANEL Routine 03/10/2025 12:19 PM EDT Muscle weakness (generalized) 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 (CMS/HCC V24, CMS/HCC V28) CBC AND DIFFERENTIAL Routine 03/10/2025 12:19 PM EDT Muscle weakness (generalized) 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 (CMS/HCC V24, CMS/HCC V28) LOPEZ URINE CULTURE TUBE Routine 03/10/20 25 12:15 PM EDT Muscle weakness (generalized) 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 (CMS/HCC V24, CMS/HCC V28) URINALYSIS WITH REFLEX MICROSCOPIC AND CULTURE Routine 03/10/2025 12:15 PM EDT Muscle weakness (generalized) 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 (CMS/HCC V24, CMS/HCC V28) URINALYSIS WITH REFLEX MICROSCOPIC AND CULTURE Routine 03/10/2025 12:15 PM EDT Muscle weakness (generalized) 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 (CMS/HCC V24, CMS/HCC V28) CULTURE URINE Routine 03/10/2025 12:15 PM EDT Muscle weakness (generalized) 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 ??Multilevel degenerative changes as detailed above. -------- FINAL REPORT -------- Dictated By: Jeramy Salazar Dictated Date: 03/16/2025 13:55 ET Assigned Physician: Jeramy Salazar Reviewed and Electronically Signed By: Jeramy Salazar Signed Date: 03/16/2025 14:18 ET Workstation ID: [id number] Transcribed By: Self Edit Transcribed Date: 03/16/2025 14:09 ET Narrative 03/16/2025 2:18 PM EDT PROCEDURE: MRI of the lumbar spine without contrast. TECHNIQUE: Multiplanar multisequence MRI of the lumbar spine without intravenous contrast administration. HISTORY: BILAT LEG WEAKNESS NUMBNESS TINGLING COMPARISON: None. FINDINGS: Left larger than right renal parapelvic cysts. ??Small T2 hyperintense lesions in the liver also likely represent cysts. ??Mild lower lumbar and sacral paraspinous muscular atrophy. ??No other paraspinous soft tissue findings. Straightening of the typical lumbar lordosis. ??Mild Baastrup's changes. ??No compression deformity. ??Mild multilevel Modic endplate changes. ??No concerning marrow infiltrative lesion. ??Mild S-shaped lumbar scoliosis. ??No significant listhesis. Normal position of the conus at T12-L1. Lumbar disc levels: L1-2: Mild disc space height loss and endplate irregularity. ??Small anterior endplate osteophytes. ??Small symmetric disc bulge. ??Minimal degenerative irregularity of the facet joints. ??No significant spinal or foraminal stenosis. L2-3: Moderate disc space height loss and endplate irregularity. ??Small anterior endplate osteophytes. ??Moderate disc bulge eccentric to the right. ??Minimal bilateral facet arthropathy. ??Moderate right foraminal stenosis. ??Mild right lateral recess stenosis without significant spinal stenosis. L3-4: Moderate disc space height loss and mild endplate irregularity. ??Small anterior endplate osteophytes. ??Small symmetric disc bulge and mild bilateral facet arthropathy and ligamentum flavum hypertrophy. ??Mild right lateral recess stenosis without spinal stenosis. ??No significant foraminal stenosis. L4-5: Moderate disc space height loss and mild endplate irregularity. ??Small anterior endplate osteophytes. ??Small disc osteophyte complex slightly eccentric to the left. ??Moderate bilateral facet arthropathy and ligamentum flavum hypertrophy. ??Mild left lateral recess stenosis. ??No significant spinal stenosis. ??Mild left foraminal stenosis. L5-S1: Moderate disc space height loss and endplate irregularity. ??Small anterior endplate osteophytes. ??Small symmetric disc osteophyte complex. ??Mild bilateral facet arthropathy and moderate bilateral ligamentum flavum hypertrophy. ??Moderate left greater than right foraminal stenosis. ??Mild bilateral lateral recess stenosis. Procedure Note Jeramy Salazar MD - 03/16/2025 PROCEDURE: MRI of the lumbar spine without contrast. TECHNIQUE: Multiplanar multisequence MRI of the lumbar spine withoutintravenous contrast administration. HISTORY: BILAT LEG WEAKNESS NUMBNESS TINGLING COMPARISON: None. FINDINGS: Left larger than right renal parapelvic cysts. Small T2 hyperintenselesions in the liver also likely represent cysts. Mild lower lumbar andsacral paraspinous muscular atrophy. No other paraspinous soft tissuefindings. Straightening of the typical lumbar lordosis. Mild Baastrup's changes.No compression deformity. Mild multilevel Modic endplate changes. Noconcerning marrow infiltrative lesion. Mild S-shaped lumbar scoliosis.No significant listhesis. Normal position of the conus at T12-L1. Lumbar disc levels: L1-2: Mild disc space height loss and endplate irregularity. Smallanterior endplate osteophytes. Small symmetric disc bulge. Minimaldegenerative irregularity of the facet joints. No significant spinal orforaminal stenosis. L2-3: Moderate disc space height loss and endplate irregularity. Smallanterior endplate osteophytes. Moderate disc bulge eccentric to theright. Minimal bilateral facet arthropathy. Moderate right foraminalstenosis. Mild right lateral recess stenosis without significant spinalstenosis. L3-4: Moderate disc space height loss and mild endplate irregularity.Small anterior endplate osteophytes. Small symmetric disc bulge and mildbilateral facet arthropathy and ligamentum flavum hypertrophy. Mild rightlateral recess stenosis without spinal stenosis. No significant foraminalstenosis. L4-5: Moderate disc space height loss and mild endplate irregularity.Small anterior endplate osteophytes. Small disc osteophyte complexslightly eccentric to the left. Moderate bilateral facet arthropathy andligamentum flavum hypertrophy. Mild left lateral recess stenosis. Nosignificant spinal stenosis. Mild left foraminal stenosis. L5-S1: Moderate disc space height loss and endplate irregularity. Smallanterior endplate osteophytes. Small symmetric disc osteophyte complex.Mild bilateral facet arthropathy and moderate bilateral ligamentum flavumhypertrophy. Moderate left greater than right foraminal stenosis. Mildbilateral lateral recess stenosis. IMPRESSION: Mild S-shaped lumbar scoliosis. Multilevel degenerative changes asdetailed above. -------- FINAL REPORT -------- Dictated By: Jeramy Salazar Dictated Date: 03/16/2025 13:55 ET Assigned Physician: Jeramy Salazar Reviewed and Electronically Signed By: Jeramy Salazar Signed Date: 03/16/2025 14:18 ET Workstation ID: [id number] Transcribed By: Self Edit Transcribed Date: 03/16/2025 14:09 ET Bobby BROWN IMG MRI PROCEDURES Final Resul t * (ABNORMAL) Thyroid stimulating hormone with reflex to free t4 and free t3 (03/10/2025 12:19 PM EDT) TSH 7.83(H) 0.40 - 4.00 mcIU/mL LAB CHEMISTRY METHOD 03/10/2025 4:01 PM EDT [facility] Blood Venous blood specimen / Unknown Venipuncture / Unknown 03/10/2025 12:19 PM EDT 03/10/2025 12:38 PM EDT us Bobby BROWN LAB BLOOD ORDERABLES Final Res ult [facility] [address] [place] [address], [place] [phone] * Free thyroxine with reflex to free triiodothyronine (03/10/2025 12:19 PM EDT) [facility] Free T4 1.31 0.70 - 1.80 ng/dL LAB CHEMISTRY METHOD 03/10/2025 6:01 PM EDT [facility] Blood Venous blood specimen / Unknown Venipuncture / Unknown 03/10/2025 12:19 PM EDT 03/10/2025 12:38 PM EDT us Bobby BROWN LAB BLOOD ORDERABLES Final Res ult [facility] [address] [place] [address], [place] [phone] * (ABNORMAL) CBC auto differential (03/10/2025 12:19 PM EDT) [facility] WBC 5.3 4.8 - 10.8 K/mcL LAB HEMETOLOGY METHOD 03/10/2025 1:18 PM EDT [facility] RBC 3.90 3.80 - 4.80 M/mcL LAB HEMETOLOGY METHOD 03/10/2025 1:18 PM EDT [facility] Hemoglobin 12.2 11.5 - 16.0 g/dL LAB HEMETOLOGY METHOD 03/10/2025 1:18 PM EDT [facility] Hematocrit 39.6 35.0 - 47.0 % LAB HEMETOLOGY METHOD 03/10/2025 1:18 PM EDT [facility] MCV 102.6(H) 79.0 - 98.0 FL LAB HEMETOLOGY METHOD 03/10/2025 1:18 PM EDT [facility] MCH 31.6 27.0 - 32.0 pcg LAB HEMETOLOGY METHOD [facility] MCHC 30.8(L) 32.0 - 37.0 g/dL LAB HEMETOLOGY METHOD 03/10/2025 1:18 PM [facility] RDW 13.5 11.0 - 15.0 % LAB HEMETOLOGY METHOD 03/10/2025 1:18 PM [facility] Platelets 178 130 - 400 K/mcL LAB HEMETOLOGY METHOD 03/10/2025 1:18 PM [facility] MPV 12.8(H) 7.0 - 11.0 FL LAB HEMETOLOGY METHOD 03/10/2025 1:18 PM [facility] NRBC 0.0 <1.0 % LAB HEMETOLOGY METHOD 03/10/2025 1:18 PM [facility] NRBC Absolute 0.00 <0.10 K/mcL LAB HEMETOLOGY METHOD 03/10/2025 1:18 PM [facility] Neutrophils Relative 71.7 % LAB HEMETOLOGY METHOD 03/10/2025 1:18 PM [facility] Lymphocytes Relative 18.0 % LAB HEMETOLOGY METHOD 03/10/2025 1:18 PM [facility] Monocytes Relative 7.6 % LAB HEMETOLOGY METHOD 03/10/2025 1:18 PM [facility] Eosinophils Relative 1.3 % LAB HEMETOLOGY METHOD 03/10/2025 1:18 PM [facility] Basophils Relative 0.8 % LAB HEMETOLOGY METHOD 03/10/2025 1:18 PM [facility] Immature Granulocytes Relative 0.6 % LAB HEMETOLOGY METHOD 03/10/2025 1:18 PM [facility] Neutrophils Absolute 3.78 1.50 - 7.00 K/mcL LAB HEMETOLOGY METHOD 03/10/2025 1:18 PM [facility] Lymphocytes Absolute 0.95(L) 1.00 - 5.00 K/mcL LAB HEMETOLOGY METHOD 03/10/2025 1:18 PM EDT [facility] Monocytes Absolute 0.40 0.20 - 1.00 K/[facility] LAB HEMETOLOGY METHOD 03/10/2025 1:18 PM EDT [facility] Eosinophils Absolute 0.07 0.00 - 0.50 K/[facility] LAB HEMETOLOGY METHOD 03/10/2025 1:18 PM EDT [facility] Basophils Absolute 0.04 0.00 - 0.20 K/[facility] LAB HEMETOLOGY METHOD 03/10/2025 1:18 PM EDT [facility] Immature Granulocytes Absolute 0.03 0.00 - 0.03 K/[facility] LAB HEMETOLOGY METHOD 03/10/2025 1:18 PM EDT [facility] Blood Venous blood specimen / Unknown Venipuncture / Unknown 03/10/2025 12:19 PM EDT 03/10/2025 12:36 PM EDT Bobby BROWN LAB BLOOD ORDERABLES Final Res ult Performing Organization Address City/[facility]/ZIP Co de Phone Number [facility] [address] [place] [address], * Triiodothyronine free (03/10/2025 12:19 PM EDT) T3, Free 255 230 - 420 pcg/dL LAB CHEMISTRY METHOD 03/10/2025 7:37 PM EDT [facility] Blood Venous blood specimen / Unknown Venipuncture / Unknown 03/10/2025 12:19 PM EDT 03/10/2025 12:38 PM EDT Bobby BROWN LAB BLOOD ORDERABLES Final Res ult [facility] [address] [place] [address], [place] [phone] * Magnesium (03/10/2025 12:19 PM EDT) [facility] Magnesium 2.2 1.9 - 2.6 mg/dL LAB CHEMISTRY METHOD 03/10/2025 1:57 PM EDT [facility] Blood Venous blood specimen / Unknown Venipuncture / Unknown 03/10/2025 12:19 PM EDT 03/10/2025 12:38 PM EDT Bobby BROWN LAB BLOOD ORDERABLES Final Res ult Performing Organization Address City/[facility]/ZIP Co de Phone Number [facility] [address] [place] [address], [place] [phone] * Vitamin B12 (03/10/2025 12:19 PM EDT) [facility] Vitamin B-12 382 250 - 900 pcg/mL LAB CHEMISTRY METHOD 03/10/2025 2:20 PM EDT [facility] Blood Venous blood specimen / Unknown Venipuncture / Unknown 03/10/2025 12:19 PM EDT 03/10/2025 12:38 PM EDT Bobby BROWN LAB BLOOD ORDERABLES Final Res ult [facility] [address] [place] [address], [place] [phone] * (ABNORMAL) Comprehensive metabolic panel (03/10/2025 12:19 PM EDT) [facility] Sodium 143 133 - 145 mmol/L LAB CHEMISTRY METHOD 03/10/2025 2:20 PM EDT [facility] Potassium 4.1 3.5 - 5.5 mmol/L LAB CHEMISTRY METHOD 03/10/2025 2:20 PM EDT [facility] Chloride 110 96 - 110 mmol/L LAB CHEMISTRY METHOD 03/10/2025 2:20 PM [facility] CO2 28 21 - 32 mmol/L LAB CHEMISTRY METHOD 03/10/2025 2:20 PM [facility] Anion Gap 5 3 - 11 LAB CHEMISTRY METHOD 03/10/2025 2:20 PM [facility] Glucose 105(H) 70 - 100 mg/dL LAB CHEMISTRY METHOD 03/10/2025 2:20 PM [facility] BUN 22 5 - 25 mg/dL LAB CHEMISTRY METHOD 03/10/2025 2:20 PM [facility] Creatinine 0.53 0.50 - 1.10 mg/dL LAB CHEMISTRY METHOD 03/10/2025 2:20 PM [facility] eGFR 95 >=60 mL/min/1. 73m2 LAB CHEMISTRY METHOD 03/10/2025 2:20 PM [facility] Comment:Calculation based on the Chronic Kidney Disease Epidemiology Collaboration (CKD-EPI) equation refit without adjustment for race. BUN/Creatinine Ratio 41.5 LAB CHEMISTRY METHOD 03/10/2025 2:20 PM [facility] Calcium 9.0 8.5 - 10.5 mg/dL LAB CHEMISTRY METHOD 03/10/2025 2:20 PM [facility] AST (SGOT) 20 10 - 42 unit/L LAB CHEMISTRY METHOD 03/10/2025 2:20 PM [facility] ALT (SGPT) 9(L) 10 - 60 unit/L LAB CHEMISTRY METHOD 03/10/2025 2:20 PM [facility] Alkaline Phosphatase 90 42 - 121 unit/L LAB CHEMISTRY METHOD 03/10/2025 2:20 PM [facility] Total Protein 6.1 6.0 - 8.0 g/dL LAB CHEMISTRY METHOD 03/10/2025 2:20 PM [facility] Albumin 3.4 3.2 - 5.0 g/dL LAB CHEMISTRY METHOD 03/10/2025 2:20 PM T [facility] Total Bilirubin 0.8 0.0 - 1.4 mg/dL LAB CHEMISTRY METHOD 03/10/2025 2:20 PM [facility] Blood Venous blood specimen / Unknown Venipuncture / Unknown 03/10/2025 12:19 PM EDT 03/10/2025 12:38 PM EDT us Bobby BROWN LAB BLOOD ORDERABLES Final Res ult [facility] [address] [place] [address], [place] [phone] * (ABNORMAL) Urinalysis with reflex microscopic and culture (03/10/2025 12:15 PM EDT) Specific [place] Urine 1.027 1.003 - 1.030 LAB URINALYSIS - AUTOMATED METHOD 03/10/2025 1:29 PM [facility] pH, Urine 5.0 5.0 - 8.0 pH LAB URINALYSIS - AUTOMATED METHOD 03/10/2025 1:29 PM [facility] Leukocytes, Urine Large(A) Negative LAB URINALYSIS - AUTOMATED METHOD 03/10/2025 1:29 PM [facility] Nitrite, Urine Positive(A) Negative LAB URINALYSIS - AUTOMATED METHOD 03/10/2025 1:29 PM [facility] Protein, Urine Trace <=Trace mg/dL LAB URINALYSIS - AUTOMATED METHOD 03/10/2025 1:29 PM [facility] Glucose, Urine Negative Negative mg/dL LAB URINALYSIS - AUTOMATED METHOD 03/10/2025 1:29 PM [facility] Ketones, Urine 15(A) Negative mg/dL LAB URINALYSIS - AUTOMATED METHOD 03/10/2025 1:29 PM EDT [facility] Urobilinogen , Urine 0.2 0.2 - 1.0 mg/dL LAB URINALYSIS - AUTOMATED METHOD 03/10/2025 1:29 PM [facility] Bilirubin, Urine Small(A) Negative LAB URINALYSIS - AUTOMATED METHOD [facility]25 [facility] Blood, Urine Negative Negative LAB URINALYSIS - AUTOMATED METHOD 03/10/2025 1:29 PM [facility] RBC, Urine 3.8 0 - 4 /HPF LAB URINALYSIS - AUTOMATED METHOD 03/10/2025 1:29 PM [facility] WBC, Urine 139.1(H) 0 - 4 /HPF LAB URINALYSIS - AUTOMATED METHOD 03/10/2025 1:29 PM [facility] Squamous Epithelial, Urine >100(H) 0 - 60 /LPF LAB URINALYSIS - AUTOMATED METHOD 03/10/2025 1:29 PM [facility] Bacteria, Urine Few(A) Negative /HPF LAB URINALYSIS - AUTOMATED METHOD 03/10/2025 1:29 PM [facility] Hyaline Casts, Urine 20.9(H) 0 - 3 /LPF LAB URINALYSIS - AUTOMATED METHOD 03/10/2025 1:29 PM [facility] Urine Urine specimen obtained by clean catch procedure / Unknown Non-blood Collection / Unknown 03/10/2025 12:15 PM EDT 03/10/2025 12:40 PM EDT us Bobby BROWN LAB URINE ORDERABLES Final Res ult [facility] [address] [place] [address], * Lopez urine culture tube (03/10/2025 12:15 PM EDT) Extra Tube Hold for add-ons. 03/10/2025 2:01 PM EDT [facility] Comment:Auto resulted. Urine Urine specimen obtained by clean catch procedure / Unknown Non-blood Collection / Unknown 03/10/2025 12:15 PM EDT 03/10/2025 12:40 PM EDT Bobby BROWN LAB URINE ORDERABLES Final Res ult Performing Organization Address [facility]/ZIP Co de Phone Number [facility] [address] [place] [address], [place] [phone] * Culture urine (03/10/2025 12:15 PM EDT) [facility] Culture, Urine 50,000-99,000 CFU/mL Mixed urogenital ivy, no uropathogens present. Suggest repeat specimen if clinically indicated. 03/11/2025 9:30 AM EDT [facility] Urine Urine specimen obtained by clean catch procedure / Unknown Non-blood Collection / Unknown 03/10/2025 12:15 PM EDT 03/10/2025 1:29 PM EDT Bobby BROWN LAB MICROBIOLOGY - GENERAL ORD ERABLES Final Result Performing Organization Address [facility]/ZIP Co de Phone Number [facility] [address] [place] [address], [place] [phone] * JOSE SCREENING DIGITAL (02/05/2021 6:47 PM EDT) Anatomical Region Laterality Modality Mammography 02/05/2021 2:55 PM EDT Narrative 02/05/2021 6:47 PM EDT [facility] Diagnostic Imaging Department [address] [place] [address] Patient: ??ANATOLIY SHARPE ?/Age/Sex: 1945 - 75 - F Unit#: ??[id number] ? Location/Status: ??SPDIMAM/REG CLI ? Mnemonic/Ordering Site: ??DIGSC/SPMAM Ordering Physician: ??MELVA MANCINI MD Jose Screening Digital - 02/05/21 - 1552 History: Bilateral breast cancer screening. Technique: Digital mammography. Conventional CC and MLO projections with tomosynthesis MLO views and computer aided detection. Comparison: [facility] and outside mammography 10/03/2017 and dating back to 10/12/2004. Findings: ??Breast tissue consists of a combination of fatty and fibroglandular elements (category b density) (as calculated by [employer] software). There are benign calcifications bilaterally and bilateral asymmetries that are without suspicious interval change. ??No suspicious group of calcification, architectural distortion, suspicious mass or suspicious asymmetry. Impression: ??No evidence of malignancy. BIRADS Category 2, benign findings, 3342F 28006, [id number] Note: Patient information entered into a reminder system with a target due date for the next mammogram: ??CPT II 7025F Dictating Physician: ??FOREST ODOM MD Electronically Signed by: ??FOREST ODOM MD Dic Date/Time: ??02/05/211839 Sign date/Time: ??02/05/211846 Procedure Note Forest Odom MD - 10/22/2022 [facility] Diagnostic Imaging Department [address] [place], [place] [id number] Patient: ANATOLIY SHARPE /Age/Sex: 1945 - 75 - F Unit#: [id number] Location/Status: SPDIMAM/REG CLI Mnemonic/Ordering Site: [facility] Ordering Physician: MELVA MANCINI MD Jose Screening Digital - 02/05/211551 History: Bilateral breast cancer screening. Technique: Digital mammography. Conventional CC and MLO projections with tomosynthesis MLO views and computer aided detection. Comparison: [facility] and outside mammography 10/03/2017 anddating back to 10/12/2004. Findings: Breast tissue consists of a combination of fatty andfibroglandular elements (category b density) (as calculated by [employer] software).There are benign calcifications bilaterally and bilateral asymmetries that arewithout suspicious interval change. No suspicious group of calcification,architectural distortion, suspicious mass or suspicious asymmetry. Impression: No evidence of malignancy. BIRADS Category 2, benign findings, 3342F 91000, [id number] Note: Patient information entered into a reminder system with a target duedate for the next mammogram: CPT II 7025F Dictating Physician: FOREST ODOM MD Electronically Signed by: FOREST ODOM MD Dic Date/Time: 02/05/211839 Sign date/Time: 02/05/211846 us Melva Mancini MD IMG BI PROCEDURES Final Resul t * JOSE DEXA AXIAL SKELETON (02/05/2021 3:38 PM EDT) Anatomical Region Laterality Modality Mammography 02/05/2021 2:55 PM EDT Narrative 02/05/2021 3:38 PM EDT [facility] Diagnostic Imaging Department [address] [place], [place] [id number] Patient: ??ANATOLIY SHARPE ?/Age/Sex: 1945 Unit#: ??[id number] ? Location/Status: ??SPDIMAM/REG CLI ? Mnemonic/Ordering Site: ??MAMDEXAAX/SPMAM Ordering Physician: ??MELVA MANCINI MD [facility] Dexa Axial Skeleton - 02/05/21 - 0717 HISTORY: Post menopausal woman with hormone depletion for screening bone densitometry. The patient is on calcium supplement with Vitamin D. TECHNIQUE: Bone densitometry is performed utilizing dual energy x-ray absorptiometry (DEXA) in the [employer] unit. The lumbar spine is evaluated in [...] bone mineralization in the right proximal femur. [id number] A report detailing these results has been enclosed. Dictating Physician: ??WOODY NEIL MD Electronically Signed by: ??WOODY NEIL MD Dic Date/Time: ??02/05/21 1537 Sign date/Time: ??02/05/21 1538 Procedure Note Woody Neil MD - 10/22/2022 [facility] Diagnostic Imaging Department [address] [place] [address] Patient: ZANDRAANATOLIY D.O.B./Age/Sex: 1945 - 75 - F Unit#: [id number] [facility] CLI Mnemonic/Ordering Site: [facility] Ordering Physician: MELVA MANCINI MD [facility] Dexa Axial Skeleton - 02/05/211516 HISTORY: Post menopausal woman with hormone depletion for screening bone densitometry. The patient is on calcium supplement with Vitamin D. TECHNIQUE: Bone densitometry is performed utilizing dual energy x-ray absorptiometry (DEXA) in the [employer] unit. The lumbar spine isevaluated in the [...] decreased bone mineralization in the rightproximal femur. [id number] A report detailing these results has been enclosed. Dictating Physician: WOODY NEIL MD Electronically Signed by: WOODY NEIL MD Dic Date/Time: 02/05/21 1537 Sign date/Time: 02/05/21 1538 Melva Mancini MD IMG BI PROCEDURES Final Resul t from Last 3 Months or Most Recently Relevant to Health Maintenance Insurance [employer] MED[employer]ARE [employer]AGE Care Teams [employer] Architect Relationship Specialty Start Date End Date Bobby Diaz PA [address] [place] [phone] PCP - General Internal Medicine 11/28/24
--- OUTSIDE RECORDS SUMMARY | 2025-03-17 12:03 | XMS_ITS | Encounter Summary ---
Author Organization [facility] Address [address] [place] [address] Care Team Providers Care Family Resource Management Specialist Name Role Phone Bobby Diaz Primary Care Provider [phone] Reason for Referral * Imaging (Routine) - Pending Review Specialty Diagnoses / Procedures Referred By Austin rich Referred To Contact Radiology Diagnoses Muscle weakness (generalized) Paresthesia of skin Parkinson's disease without dyskinesia, without mention of fluctuations (CMS/HCC V24, CMS/HCC V28) Procedures MR Lumbar Spine wo Contrast Bobby Diaz PA [address] [place] [phone] Phone: tel: fax: [facility] Referral ID Status Reason Start Date Expiration Date V isits Requested Visits Authorized [id number] Pending Review 03/14/2025 03/14/2026 1 1 Reason for Visit * Imaging (Routine) - Pending Review Specialty Diagnoses / Procedures Referred By Austin rich Referred To Contact Radiology Diagnoses Muscle weakness (generalized) Paresthesia of skin Parkinson's disease without dyskinesia, without mention of fluctuations (CMS/HCC V24, CMS/HCC V28) Procedures MR Lumbar Spine wo Contrast Bobby Daiz PA [address] [place] [phone] Phone: tel: fax: [facility] Referral ID Status Reason Start Date Expiration Date V isits Requested Visits Authorized [id number] Pending Review 03/14/2025 03/14/2026 1 1 Encounter Details Date Type Department Care Team (Latest Contact Info) Description 03/16/2025 12:30 PM EDT - 03/16/2025 11:59 PM EDT Hospital Encounter [facility] MRI [address] [place] [id number] Muscle weakness (generalized); Paresthesia of skin; Parkinson's disease without dyskinesia, without mention of fluctuations (CMS/HCC V24, CMS/HCC V28) Discharge Disposition: Home or Self Care Social History Tobacco Use Types Packs/Day Years Used Date Smoking Tobacco: Never Assessed Comments Unknown Sex and Gender Information Value Date Recorded Sex Assigned at Not on file Legal Sex Female 2:09 PM EST Gender Identity Not on file Sexual Orientation Not on file documented as of this encounter Discharge Disposition Disposition Code Departure Means Destination Home or Self Care documented in this encounter Plan of Treatment Not on file documented as of this encounter Procedures Procedure Name Priority Date/Time Associated Diagnosis Comments MR LUMBAR SPINE WO CONTRAST Routine 03/16/2025 1:43 PM EDT Muscle weakness (generalized) Paresthesia of skin Parkinson's disease without dyskinesia, without mention of fluctuations (CMS/HCC V24, CMS/HCC V28) documented in this encounter Results * MR Lumbar Spine wo Contrast [...] Signed Date: 03/16/2025 14:18 ET Workstation ID: [id number] Transcribed By: Self Edit Transcribed Date: 03/16/2025 [...] Signed Date: 03/16/2025 14:18 ET Workstation ID: [id number] Transcribed By: Self Edit Transcribed Date: 03/16/2025 14:09 ET Bobby BROWN IMG MRI PROCEDURES Final Resul t documented in this encounter Visit Diagnoses Diagnosis Muscle weakness (generalized) Paresthesia of skin Parkinson's disease without dyskinesia, without mention of fluctuations (CMS/HCC V24, CMS/HCC V28) documented in this encounter Care Teams Family Resource Management Specialist Relationship Specialty Start Date End Date Bobby Diaz PA [address] [place] [phone] PCP - General Internal Medicine 11/28/24 documented as of this encounter
== END 2025-03-17 11:48 | disposition home or self-care (01) ==
LOC: HO.HSMS 10:54
PROVIDERS: PCP Physician Assistant; Visit Provider Psychiatry & Neurology Neurology
DX: G20.B2 Parkinson's disease with dyskinesia, with fluctuations (principal); G25.81 Restless legs syndrome
CPT/HCPCS: 99215; G2211

== ENCOUNTER 2025-04-20 07:53 | Outpatient (AMB) | payer OTHER, SELFPAY ==
--- NOTE | 2025-04-20 07:52 | MHC.OFFVIS ---
Intake Visit Reasons: 1m f/u OK per MD Intake Note: Patient was added to schedule MD galvez. following up on med adjustment. Allergies ciprofloxacin (From Cipro) Allergy (Mild, Verified 04/20/25 07:53) Difficulty Swallowing HPI Comments Details: 79y/o female calls for follow up. she is doing well with change in timings - she is fine until 5 pm . After that she has an episode of freezing tingling numbness in her feet feeling dizzy . she reported numbness from waist down when she lies down . she did not start clonazepam - worried about side effects.she is sleeping good. MRI L spine shows - multilevel deg changes .she is doing [facility] at [facility]..she cannot get comfortable- leg discomfort. walking around feels better. she is able to chop vegetables, and able to use her hands better.No tremors, Bowel movements are stable. Her gait and balance are slower No constipation Memory is stable and speech is ok. she is independent in most ADLs. She does not drive anymore.Her partner helps with laundry.Back is usually triggered when she does yard work. [facility] Medical History Parkinson's disease with dyskinesia Thyroid disease Parkinson's disease Restless legs syndrome (RLS) Arthritis Family History Father Liver disease Mother Kidney disease Heart disease Family/Other Pat's disease DM (diabetes mellitus) Social History Alcohol intake: current Alcohol intake frequency: a few times a month Alcohol type: wine Patient Tobacco Use Status: Never used Tobacco Physical Exam Const General: cooperative Orientation/consciousness: patient oriented x3 Neuro Other: speech- normal Mood - good General: patient oriented x3 Telehealth Telehealth Telehealth Platform: Telephone Location of provider rendering services: practice address Location of patient: address on file Patient Identification confirmed using: Name, : Yes Telehealth method: voice only Patient verbally consented to treatment: Yes Patient verbally consented to billing insurance company: Yes Patient informed of any privacy concerns related to visit: Yes Assessment & Plan Assessment & Plan (1) Parkinson's disease with dyskinesia: Code(s): G20.B1 - Parkinson's disease with dyskinesia, without mention of fluctuations Category: Medical Qualifiers: Fluctuating manifestations: with fluctuating manifestations Qualified Code(s): G20.B2 - Parkinson's disease with dyskinesia, with fluctuations (2) Restless legs syndrome (RLS): Code(s): G25.81 - Restless legs syndrome Category: Medical Plan continue Sinemet 25/100 1 1/2 tabs 6 times a day - change timings to 6am 9am12 noon 3pm 6pm 9pm she tried rytary in the past and did not tolerate , was expensive. she was tried rasagiline by entacapone 200mg qid sinemet 25/100 ER 1 tab at [facility]quip 1mg qhs - I will trial her on Vyalev or onapgo depending on insurance approval. It will help her fluctuations and dyskinesias. Coding Level of Care Code Tele Est Pt Level 4 (10340) Complex EM visit Add On G2211 Diagnoses Parkinson's disease with dyskinesia and fluctuating manifestations G20.B2 Fluctuating manifestations: with fluctuating manifestations Restless legs syndrome (RLS) G25.81 Time Spent (min) 24
--- OUTSIDE RECORDS SUMMARY | 2025-04-20 07:59 | XMS_ITS | Clinical Summary ---
Author Organization [facility] Address [address] [place] [address] Phone Care Team Providers Care Cable Television Line Technician Name Role Phone Bobby Diaz Primary Care Provider Allergies Active Allergy Reactions Criticality Noted Date Comments Ciprofloxacin Swelling 11/28/2024 Eye drops Encounters Date Type Department Care Team Description 03/16/2025 12:30 PM EDT - 03/16/2025 11:59 PM EDT Hospital Encounter [facility] MRI [address] [place] [address] Muscle weakness (generalized); Paresthesia of [...] 71 11/28/2024 3:28 PM EST Temperature 36.4 C (97.5 F) 11/28/2024 3:28 PM EST Respiratory Rate 16 11/28/2024 3:28 PM EST [...] Procedure Name Priority Date/Time Associated Diagnosis Comments LOPEZ URINE CULTURE TUBE Routine 03/17/20 12:28 PM EDT Dysuria URINALYSIS WITH REFLEX MICROSCOPIC AND CULTURE Routine 03/17/2025 12:28 PM EDT Dysuria URINALYSIS WITH REFLEX MICROSCOPIC AND CULTURE Routine 03/17/2025 12:28 PM EDT Dysuria CULTURE URINE Routine 03/17/2025 12:28 PM EDT Dysuria MR LUMBAR SPINE WO CONTRAST Routine 03/16/2025 [...] disease Paralysis agitans (CMS/HCC V24, CMS/HCC V28) JOSE SCREENING DIGITAL Routine 02/05/2021 6:47 PM EDT Encounter for screening mammogram for malignant neoplasm of breast [facility] DEXA AXIAL SKELETON Routine 02/06/20 21 3:38 PM EDT Encounter for screening for osteoporosis from Last 3 Months or Most Recently Relevant to Health Maintenance Results * (ABNORMAL) Urinalysis with reflex microscopic and culture (03/17/2025 12:28 PM EDT) Only the most recent of2 resultswithin the time period is included. Pathologist [facility] Specific [place] Urine 1.033(H) 1.003 - 1.030 LAB URINALYSIS - AUTOMATED METHOD 03/17/2025 1:27 PM [facility] pH, Urine 5.5 5.0 - 8.0 pH LAB URINALYSIS - AUTOMATED METHOD 03/17/2025 1:27 PM [facility] Leukocytes, Urine Trace(A) Negative LAB URINALYSIS - AUTOMATED METHOD 03/17/2025 1:27 PM [facility] Nitrite, Urine Positive(A) Negative LAB URINALYSIS - AUTOMATED METHOD 03/17/2025 1:27 PM [facility] Protein, Urine Negative <=Trace mg/dL LAB URINALYSIS - AUTOMATED METHOD 03/17/2025 1:27 PM [facility] Glucose, Urine Negative Negative mg/dL LAB URINALYSIS - AUTOMATED METHOD 03/17/2025 1:27 PM [facility] Ketones, Urine 15(A) Negative mg/dL LAB URINALYSIS - AUTOMATED METHOD 03/17/2025 1:27 PM [facility] Urobilinogen , Urine 1.0 0.2 - 1.0 mg/dL LAB URINALYSIS - AUTOMATED METHOD 03/17/2025 1:27 PM [facility] Bilirubin, Urine Negative Negative LAB URINALYSIS - AUTOMATED METHOD 03/17/2025 1:27 PM [facility] Blood, Urine Negative Negative LAB URINALYSIS - AUTOMATED METHOD 03/17/2025 1:27 PM EDT [facility] RBC, Urine 3 0 - 4 /HPF LAB URINALYSIS - AUTOMATED METHOD 03/17/2025 1:27 PM EDT [facility] WBC, Urine 1.6 0 - 4 /HPF LAB URINALYSIS - AUTOMATED METHOD 03/17/2025 1:27 PM EDT [facility] Squamous Epithelial, Urine 37 0 - 60 /LPF LAB URINALYSIS - AUTOMATED METHOD 03/17/2025 1:27 PM EDT [facility] Crystals, Urine MOD CALCIUM OXALATE /LPF LAB URINALYSIS - AUTOMATED METHOD 03/17/2025 1:27 PM EDT [facility] Bacteria, Urine Negative Negative /HPF LAB URINALYSIS - AUTOMATED METHOD 03/17/2025 1:27 PM [facility] Hyaline Casts, Urine 0.8 0 - 3 /LPF LAB URINALYSIS - AUTOMATED METHOD 03/17/2025 1:27 PM T [facility] Urine Urine specimen obtained by clean catch procedure / Unknown Non-blood Collection / Unknown 03/17/2025 12:28 PM EDT 03/17/2025 12:55 PM EDT us Bobby BROWN LAB URINE ORDERABLES Final Res ult [facility] [address] [place] [address], * Lopez urine culture tube (03/17/2025 12:28 PM EDT) Only the most recent of2 resultswithin the time period is included. Extra Tube Hold for add-ons. 03/17/2025 2:02 PM EDT [facility] Comment:Auto resulted. Urine Urine specimen obtained by clean catch procedure / Unknown Non-blood Collection / Unknown 03/17/2025 12:28 PM EDT 03/17/2025 12:55 PM EDT Bobby BROWN LAB URINE ORDERABLES Final Res ult Performing Organization Address [facility]/ZIP Co de Phone Number [facility] [address] [place] [address], [place] [phone] * Culture urine (03/17/2025 12:28 PM EDT) Only the most recent of2 resultswithin the time period is included. Culture, Urine No growth 03/18/2025 10:10 AM EDT [facility] Urine Urine specimen obtained by clean catch procedure / Unknown Non-blood Collection / Unknown 03/17/2025 12:28 PM EDT 03/17/2025 1:27 PM EDT Bobby BROWN LAB MICROBIOLOGY - GENERAL ORD ERABLES Final Result Performing Organization Address [facility] Co de Phone Number [facility] [address] [place] [address], [place] [phone] * MR Lumbar Spine wo Contrast (03/16/2025 1:43 PM EDT) Anatomical Region Laterality Modality L-spine, Spine Magnetic Resonan ce 03/16/2025 1:55 PM EDT Impressions 03/16/2025 2:18 PM EDT Mild S-shaped lumbar scoliosis. Multilevel degenerative changes as detailed above. -------- FINAL REPORT -------- Dictated By: Jeramy Salazar Dictated Date: 03/16/2025 13:55 ET Assigned Physician: Jeramy Salazar Reviewed and Electronically Signed By: Jeramy Salazar Signed Date: 03/16/2025 14:18 ET Workstation ID: [id number] Transcribed By: Self Edit Transcribed Date: 03/16/2025 14:09 ET Narrative 03/16/2025 2:18 PM EDT PROCEDURE: MRI of the lumbar spine without contrast. TECHNIQUE: Multiplanar multisequence MRI of the lumbar spine without intravenous contrast administration. HISTORY: BILAT LEG WEAKNESS NUMBNESS TINGLING COMPARISON: None. FINDINGS: Left larger than right renal parapelvic cysts. Small T2 hyperintense lesions in the liver also likely represent cysts. Mild lower lumbar and sacral paraspinous muscular atrophy. No other paraspinous soft tissue findings. Straightening of the typical lumbar lordosis. Mild Baastrup's changes. No compression deformity. Mild multilevel Modic endplate changes. No concerning marrow infiltrative lesion. Mild S-shaped lumbar scoliosis. No significant listhesis. Normal position of the conus at T12-L1. Lumbar disc levels: L1-2: Mild disc space height loss and endplate irregularity. Small anterior endplate osteophytes. Small symmetric disc bulge. Minimal degenerative irregularity of the facet joints. No significant spinal or foraminal stenosis. L2-3: Moderate disc space height loss and endplate irregularity. Small anterior endplate osteophytes. Moderate disc bulge eccentric to the right. Minimal bilateral facet arthropathy. Moderate right foraminal stenosis. Mild right lateral recess stenosis without significant spinal stenosis. L3-4: Moderate disc space height loss and mild endplate irregularity. Small anterior endplate osteophytes. Small symmetric disc bulge and mild bilateral facet arthropathy and ligamentum flavum hypertrophy. Mild right lateral recess stenosis without spinal stenosis. No significant foraminal stenosis. L4-5: Moderate disc space height loss and mild endplate irregularity. Small anterior endplate osteophytes. Small disc osteophyte complex slightly eccentric to the left. Moderate bilateral facet arthropathy and ligamentum flavum hypertrophy. Mild left lateral recess stenosis. No significant spinal stenosis. Mild left foraminal stenosis. L5-S1: Moderate disc space height loss and endplate irregularity. Small anterior endplate osteophytes. Small symmetric disc osteophyte complex. Mild bilateral facet arthropathy and moderate bilateral ligamentum flavum hypertrophy. Moderate left greater than right foraminal stenosis. Mild bilateral lateral recess stenosis. Procedure Note Jeramy [...] Signed Date: 03/16/2025 14:18 ET Workstation ID: [id number] Transcribed By: Self Edit Transcribed Date: 03/16/2025 14:09 ET Bobby BROWN IMG MRI PROCEDURES Final Resul t * (ABNORMAL) Thyroid stimulating hormone with reflex to free t4 and free t3 (03/10/2025 12:19 PM EDT) [facility] TSH 7.83(H) 0.40 - 4.00 mcIU/mL LAB CHEMISTRY METHOD 03/10/2025 4:01 PM EDT [facility] Blood Venous blood specimen / Unknown Venipuncture / Unknown 03/10/2025 12:19 PM EDT 03/10/2025 12:38 PM EDT Bobby BROWN LAB BLOOD ORDERABLES Final Res ult [facility] [address] [place] [address], [place] [phone] * Free thyroxine with reflex to free triiodothyronine (03/10/2025 12:19 PM EDT) [facility] Free T4 1.31 0.70 - 1.80 ng/dL LAB CHEMISTRY METHOD 03/10/2025 6:01 PM EDT [facility] Blood Venous blood specimen / Unknown Venipuncture / Unknown 03/10/2025 12:19 PM EDT 03/10/2025 12:38 PM EDT Bobby BROWN LAB BLOOD ORDERABLES Final Res ult [facility] [address] [place] [address], [place] [phone] * (ABNORMAL) CBC auto differential (03/10/2025 12:19 PM EDT) [facility] WBC 5.3 4.8 - 10.8 K/mcL LAB HEMETOLOGY METHOD 03/10/2025 1:18 PM [facility] RBC 3.90 3.80 - 4.80 M/mcL LAB HEMETOLOGY METHOD 03/10/2025 1:18 PM [facility] Hemoglobin 12.2 11.5 - 16.0 g/dL LAB HEMETOLOGY METHOD 03/10/2025 1:18 PM [facility] Hematocrit 39.6 35.0 - 47.0 % LAB HEMETOLOGY METHOD 03/10/2025 1:18 PM [facility] MCV 102.6(H) 79.0 - 98.0 FL LAB HEMETOLOGY METHOD 03/10/2025 1:18 PM [facility] MCH 31.6 27.0 - 32.0 pcg LAB HEMETOLOGY METHOD 03/10/2025 1:18 PM [facility] MCHC 30.8(L) 32.0 - 37.0 g/dL LAB HEMETOLOGY METHOD 03/10/2025 1:18 PM [facility] RDW 13.5 11.0 - 15.0 % LAB HEMETOLOGY METHOD 03/10/2025 1:18 PM [facility] Platelets 178 130 - 400 K/[facility] LAB HEMETOLOGY METHOD 03/10/2025 1:18 PM [facility] MPV 12.8(H) 7.0 - 11.0 FL LAB HEMETOLOGY METHOD 03/10/2025 1:18 PM [facility] NRBC 0.0 <1.0 % LAB HEMETOLOGY METHOD 03/10/2025 1:18 PM [facility] NRBC Absolute 0.00 <0.10 K/mcL LAB HEMETOLOGY METHOD 03/10/2025 1:18 PM [facility] Neutrophils Relative 71.7 % LAB HEMETOLOGY METHOD 03/10/2025 1:18 PM [facility] Lymphocytes Relative 18.0 % LAB HEMETOLOGY METHOD 03/10/2025 1:18 PM [facility] Monocytes Relative 7.6 % LAB HEMETOLOGY METHOD 03/10/2025 1:18 PM [facility] Eosinophils Relative 1.3 % LAB HEMETOLOGY METHOD 03/10/2025 1:18 PM [facility] Basophils Relative 0.8 % LAB HEMETOLOGY METHOD 03/10/2025 1:18 PM [facility] Immature Granulocytes Relative 0.6 % LAB HEMETOLOGY METHOD 03/10/2025 1:18 PM [facility] Neutrophils Absolute 3.78 1.50 - 7.00 K/mcL LAB HEMETOLOGY METHOD 03/10/2025 1:18 PM [facility] Lymphocytes Absolute 0.95(L) 1.00 - 5.00 K/mcL LAB HEMETOLOGY METHOD 03/10/2025 1:18 PM [facility] Monocytes Absolute 0.40 0.20 - 1.00 K/mcL LAB HEMETOLOGY METHOD 03/10/2025 1:18 PM [facility] Eosinophils Absolute 0.07 0.00 - 0.50 K/mcL LAB HEMETOLOGY METHOD 03/10/2025 1:18 PM [facility] Basophils Absolute 0.04 0.00 - 0.20 K/mcL LAB HEMETOLOGY METHOD 03/10/2025 1:18 PM [facility] Immature Granulocytes Absolute 0.03 0.00 - 0.03 K/mcL LAB HEMETOLOGY METHOD 03/10/2025 1:18 PM [facility] Blood Venous blood specimen / Unknown Venipuncture / Unknown 03/10/2025 12:19 PM EDT 03/10/2025 12:36 PM EDT Bobby BROWN LAB BLOOD ORDERABLES Final Res ult Performing Organization Address [facility]/ZIP Co de Phone Number [facility] [address] [place] [address], [place] [phone] * Triiodothyronine free (03/10/2025 12:19 PM EDT) T3, Free 255 230 - 420 pcg/dL LAB CHEMISTRY METHOD 03/10/2025 7:37 PM EDT [facility] Blood Venous blood specimen / Unknown Venipuncture / Unknown 03/10/2025 12:19 PM EDT 03/10/2025 12:38 PM EDT Bobby BROWN LAB BLOOD ORDERABLES Final Res ult Performing Organization Address [facility]/ZIP Co de Phone Number [facility] [address] [place] [address], [place] [phone] * Magnesium (03/10/2025 12:19 PM EDT) Magnesium 2.2 1.9 - 2.6 mg/dL LAB CHEMISTRY METHOD 03/10/2025 1:57 PM EDT [facility] Blood Venous blood specimen / Unknown Venipuncture / Unknown 03/10/2025 12:19 PM EDT 03/10/2025 12:38 PM EDT Bobby BROWN LAB BLOOD ORDERABLES Final Res ult Performing Organization Address City/[facility]/ZIP Co de Phone Number [facility] [address] [place] [address], [place] [phone] * Vitamin B12 (03/10/2025 12:19 PM EDT) Vitamin B-12 382 250 - 900 pcg/mL LAB CHEMISTRY METHOD 03/10/2025 2:20 [facility] Blood Venous blood specimen / Unknown Venipuncture / Unknown 03/10/2025 12:19 PM EDT 03/10/2025 12:38 PM EDT us Bobby BROWN LAB BLOOD ORDERABLES Final Res ult [facility] [address] [place] [address], [place] [phone] * (ABNORMAL) Comprehensive metabolic panel (03/10/2025 12:19 PM EDT) [facility] Sodium 143 133 - 145 mmol/L LAB CHEMISTRY METHOD 03/10/2025 2:20 PM [facility] Potassium 4.1 3.5 - 5.5 mmol/L LAB CHEMISTRY METHOD 03/10/2025 2:20 PM [facility] Chloride 110 96 - 110 mmol/L LAB CHEMISTRY METHOD 03/10/2025 2:20 PM [facility] CO2 28 21 - 32 mmol/L LAB CHEMISTRY METHOD 03/10/2025 2:20 PM [facility] Anion Gap 5 3 - 11 LAB CHEMISTRY METHOD 03/10/2025 2:20 PM [facility] Glucose 105(H) 70 - 100 mg/dL LAB CHEMISTRY METHOD 03/10/2025 2:20 PM [facility] BUN 22 5 - 25 mg/dL LAB CHEMISTRY METHOD 03/10/2025 2:20 PM [facility] Creatinine 0.53 0.50 - 1.10 mg/dL LAB CHEMISTRY METHOD 03/10/2025 2:20 PM [facility] eGFR 95 >=60 mL/min/1. 73m2 LAB CHEMISTRY METHOD 03/10/2025 2:20 PM EDT [facility] Comment:Calculation based on the Chronic Kidney Disease Epidemiology Collaboration (CKD-EPI) equation refit without adjustment for race. BUN/Creatinine Ratio 41.5 LAB CHEMISTRY METHOD 03/10/2025 2:20 PM EDT [facility] Calcium 9.0 8.5 - 10.5 mg/dL LAB CHEMISTRY METHOD 03/10/2025 2:20 PM T [facility] AST (SGOT) 20 10 - 42 unit/L LAB CHEMISTRY METHOD 03/10/2025 2:20 PM [facility] ALT (SGPT) 9(L) 10 - 60 unit/L LAB CHEMISTRY METHOD 03/10/2025 2:20 PM [facility] Alkaline Phosphatase 90 42 - 121 unit/L LAB CHEMISTRY METHOD 03/10/2025 2:20 PM [facility] Total Protein 6.1 6.0 - 8.0 g/dL LAB CHEMISTRY METHOD 03/10/2025 2:20 PM [facility] Albumin 3.4 3.2 - 5.0 g/dL LAB CHEMISTRY METHOD 03/10/2025 2:20 PM [facility] Total Bilirubin 0.8 0.0 - 1.4 mg/dL LAB CHEMISTRY METHOD 03/10/2025 2:20 PM [facility] Blood Venous blood specimen / Unknown Venipuncture / Unknown 03/10/2025 12:19 PM EDT 03/10/2025 12:38 PM EDT us Bobby BROWN LAB BLOOD ORDERABLES Final Res ult [facility] [address] [place] [address], [place] [phone] * JOSE SCREENING DIGITAL (02/05/2021 6:47 PM EDT) Anatomical Region Laterality Modality Mammography 02/05/2021 2:55 PM EDT Narrative 02/05/2021 6:47 PM EDT [facility] Diagnostic Imaging Department [address] [place] [id number] Patient: ANATOLIY SHARPE Gurinder FarrellB./Age/Sex: 1945 - 75 - F Unit#: [id number] [facility] Ordering Physician: MELVA MANCINI MD Jose Screening Digital - 02/05/21 861 History: Bilateral breast cancer screening. Technique: Digital mammography. Conventional CC and MLO projections with tomosynthesis MLO views and computer aided detection. Comparison: [facility] and outside mammography 10/03/2017 and dating back to 10/12/2004. Findings: Breast tissue consists of a combination of fatty and fibroglandular elements (category b density) (as calculated by [employer] Volpara software). There are benign calcifications bilaterally and bilateral asymmetries that are without suspicious interval change. No suspicious group of calcification, architectural distortion, suspicious mass or suspicious asymmetry. Impression: No evidence of malignancy. BIRADS Category 2, benign findings, 3342F 13685, 37971 Note: Patient information entered into a reminder system with a target due date for the next mammogram: CPT II 7025F Dictating Physician: FOREST ODOM MD Electronically Signed by: FOREST ODOM MD Dic Date/Time: 02/05/211839 Sign date/Time: 04/05/21 1847 Procedure Note Forest Odom MD - 10/22/2022 [facility] Diagnostic Imaging Department [address] [place] [address] Patient: ANATOLIY SHARPE Gurinder /Age/Sex: 1945 - 75 - F Unit#: [id number] [facility] Ordering Physician: MELVA MANCINI MD Jose Screening Digital - 02/05/21 - 155 History: Bilateral breast cancer screening. Technique: Digital mammography. Conventional CC and MLO projections with tomosynthesis MLO views and computer aided detection. Comparison: [facility] and outside mammography 10/03/2017 anddating back to 10/12/2004. Findings: Breast tissue consists of a combination of fatty andfibroglandular elements (category b density) (as calculated by [employer] Volpara software).There are benign calcifications bilaterally and bilateral asymmetries that arewithout suspicious interval change. No suspicious group of calcification,architectural distortion, suspicious mass or suspicious asymmetry. Impression: No evidence of malignancy. BIRADS Category 2, benign findings, 3342F 10563, 29848 Note: Patient information entered into a reminder [...] PM EDT Narrative 02/05/2021 3:38 PM EDT [facility] Diagnostic Imaging Department [address] [place] [id number] Patient: ANATOLIY SHARPE Gurinder Mo/Age/Sex: 1945 - 75 - F Unit#: [id number] [facility] Ordering Physician: MELVA MANCINI MD Jose Dexa Axial Skeleton - 02/05/21 - 0070 HISTORY: Post menopausal woman with hormone depletion for screening bone densitometry. The patient is on calcium supplement with Vitamin D. TECHNIQUE: Bone densitometry is performed utilizing dual energy x-ray absorptiometry (DEXA) in the [employer] unit. The lumbar spine is evaluated in [...] bone mineralization in the right proximal femur. 46043 A report detailing these results has been enclosed. Dictating Physician: WOODY NEIL MD Electronically Signed by: WOODY NEIL MD Dic Date/Time: 02/05/211536 Sign date/Time: 02/05/211537 Procedure Note Woody Neil MD - 10/22/2022 [facility] Diagnostic Imaging Department [address] [place] [address] Patient: ANATOLIY SHARPE./Age/Sex: 1945 - 75 - F Unit#: [id number] [facility] Ordering Physician: MELVA MANCINI MD [facility] Dexa Axial Skeleton - 02/05/21 - 1495 HISTORY: Post menopausal woman with hormone depletion for screening bone densitometry. The patient is on calcium supplement with Vitamin D. TECHNIQUE: Bone densitometry is performed utilizing dual energy x-ray absorptiometry (DEXA) in the [employer] unit. The lumbar spine isevaluated in the [...] decreased bone mineralization in the rightproximal femur. [id number] A report detailing these results has been enclosed. Dictating Physician: WOODY NEIL MD Electronically Signed by: WOODY NEIL MD Dic Date/Time: 02/05/21 1537 Sign date/Time: 02/05/21 1538 Melva Mancini MD IMG BI PROCEDURES Final Resul t from Last 3 Months or Most Recently Relevant to Health Maintenance Insurance [employer] MED[employer]ARE [employer]AGE Care Teams [employer] Television Line Technician Relationship Specialty Start Date End Date Bobby Diaz PA [address] [place] [phone] PCP - General Internal Medicine 11/28/24
== END 2025-04-20 09:08 | disposition home or self-care (01) ==
LOC: HO.HSMS 07:53
PROVIDERS: PCP Physician Assistant; Visit Provider Psychiatry & Neurology Neurology
DX: G20.B2 Parkinson's disease with dyskinesia, with fluctuations (principal); G25.81 Restless legs syndrome
CPT/HCPCS: 98014

== ENCOUNTER → 2025-04-20 07:53 | Outpatient (BNVA) | payer OTHER, SELFPAY | PROVIDERS: PCP Physician Assistant; Visit Provider Psychiatry & Neurology Neurology | DX: G20.B2 Parkinson's disease with dyskinesia, with fluctuations (principal); G25.81 Restless legs syndrome ==